=== PATIENT | male | born 1990 | race Hispanic/Latino ===

== ENCOUNTER 2023-11-06 02:41 | Emergency (ER) | payer SELFPAY ==
[2023-11-06] MEDS ORDERED: ONDANSETRON 4 MG/2 ML VIAL ONE (03:15)
[2023-11-06] MEDS ORDERED: ASPIRIN 81 MG CHEWABLE TABLET ONE (03:16)
[2023-11-06] MEDS ORDERED: NA CHLORIDE 0.9% 1,000 ML ONE (03:16)
[2023-11-06] MEDS ORDERED: LORazepam 2 MG/ML VIAL ONE (03:16)
[2023-11-06 03:34] LABS: Absolute Eosinophils 0.1 K/uL (0-0.5); Absolute Lymphocytes (CBC) 2.9 K/uL (0.7-4.9); Absolute Monocytes 0.6 K/uL (0.1-1.3); Absolute Neutrophil 3.5 K/uL (1.8-8.0); Basophils % 0.6 % (0-1.3); Eosinophils % 0.8 % (0-4.4); Hematocrit 42.4 % (39.6-49.0); Hemoglobin 14.8 g/dL (13.6-17.9); Lymphocytes % 40.9 % (15.3-44.8); MCH 31.6 pg (27.0-35.0); MCHC 34.8 g/dL (32.0-36.0); MCV 90.8 fL (80-100); MPV 8.9 fL (7.6-11.3); Monocytes % 8.6 % (3.3-12.3); Neutrophils % 49.1 % (41.7-73.7); Nucleated Red Blood Cells % 0.1 % (0-0); Platelets 225 thou/uL (152-406); RBC Red Blood Cell Count 4.67 M/uL (4.33-5.43); Red Cell Distribution Width 11.9 % (12.1-15.2)
[2023-11-06 03:57] LABS: ALT/SGPT 85 U/L (16-61); AST/SGOT 38 U/L (15-37); Albumin 4.1 g/dL (3.4-5.0); Albumin/Globulin Ratio 1.2 (1.1-1.8); Alkaline Phosphatase 77 U/L (45-117); Anion Gap 9.2 mEq/L (5.0-15.0); BUN Blood Urea Nitrogen 21 mg/dL (7-18); Bicarbonate 27 mEq/L (21-32); Bilirubin Direct 0.2 mg/dL (0-0.2); Bilirubin Indirect, Calculated 0.4 mg/dL (0.2-0.8); Bilirubin Total 0.6 mg/dL (0.2-1.0); Globulin 3.4 g/dL (2.3-3.5); Glomerular Filtration Rate 111 ml/min (=/>90); Glucose Level 121 mg/dL (74-106); Magnesium 1.8 mg/dL (1.6-2.4); Potassium 3.2 mEq/L (3.5-5.1); Protein, Total 7.5 g/dL (6.4-8.2); Sodium Level 135 mEq/L (136-145); Troponin High Sensitivity 4.6 pg/mL (<58.9)
[2023-11-06 04:00] LABS: C-Reactive Protein < 2.90 mg/L (<3.00); NT PRO-BNP < 5 pg/mL (<125)
[2023-11-06 04:03] LABS: PT Prothrombin Time 11.7 SECONDS (9.4-12.5); Protime INR 1.05
--- NOTE | 2023-11-06 06:08 | EDPHYS ---
Physician Documentation [facility] Name: Wili Andrade Age: 32 yrs Sex: Male : 1990 Arrival Date: 11/06/2023 Time: 02:41 Bed 17 Private MD: ED Physician Dillon Elise HPI: 11/05 02:53 This 32 yrs old Male presents to ER via Unassigned with complaints of anxiety. sp4 18:55 32-year-old male presents with complaint of headaches, dizziness, chest pains, numbness sp4 and tingling in the arms and legs, feeling unwell. This has been a problem for several weeks. Patient woke up this morning feeling unwell having headache, discomfort, chest pains, anxiety, numbness and tingling.. Historical: - Allergies: 03:03 No Known Allergies; lg3 - Home Meds: 03:03 None [Active]; lg3 - PMHx: 03:03 None; lg3 - PSHx: 03:03 None; lg3 - Immunization history:: Adult Immunizations up to date. - Infectious Disease History:: Denies. - Social history:: Smoking status: Reported history of juuling and/or vaping. Patient uses alcohol, weekly. - Family history:: not pertinent. ROS: 18:55 Constitutional: Negative for fever, chills, and weight loss, positive for headache, sp4 elevated blood pressure, positive for chest pains, positive for anxiety, positive for numbness and tingling, positive for feeling unwell Eyes: Negative for injury, pain, redness, and discharge, ENT: Negative for injury, pain, and discharge, 18:55 All other systems are negative, Exam: 06:05 Constitutional: This is a well developed, well nourished patient who is awake, alert, sp4 and in no acute distress. Head/Face: Normocephalic, atraumatic. Eyes: Pupils equal round and reactive to light, extra-ocular motions intact. Lids and lashes normal. Conjunctiva and sclera are not injected. Cornea within normal limits. Periorbital areas with no swelling, redness, or edema. ENT: Nares patent. No nasal discharge, no septal abnormalities noted. Tympanic membranes are normal and external auditory canals are clear. Oropharynx with no redness, swelling, or masses, exudates, or evidence of obstruction, uvula midline. Mucous membranes moist. Neck: Trachea midline, no thyromegaly or masses palpated, and no cervical lymphadenopathy. Supple, full range of motion without nuchal rigidity, or vertebral point tenderness. Chest/axilla: Normal chest wall appearance and motion. Nontender with no deformity. No lesions are appreciated. Cardiovascular: Regular rate and rhythm with a normal S1 and S2. No gallops, murmurs, or rubs. Normal PMI, no JVD. No pulse deficits. Respiratory: Lungs have equal breath sounds bilaterally, clear to auscultation and percussion. No rales, rhonchi or wheezes noted. No increased work of breathing, no retractions or nasal flaring. Abdomen/GI: Soft, with normal bowel sounds. No distension or tympany. No guarding or rebound. No evidence of tenderness throughout. Back: No spinal tenderness. No costovertebral tenderness. Skin: Warm, dry with normal turgor. Normal color with no rashes, no lesions, and no evidence of cellulitis. MS/ Extremity: Pulses equal, no cyanosis. Neurovascular intact. Full, normal range of motion. Neuro: Awake and alert, GCS 15, oriented to person, place, time, and situation. Cranial nerves II-XII grossly intact. Motor strength 5/5 in all extremities. Sensory grossly intact. Psych: Awake, alert, with orientation to person, place and time. Behavior, mood, and affect are within normal limits 06:05 ECG was reviewed by the Attending Physician. EKG normal sinus rhythm rate 83, otherwise normal EKG Vital Signs: 02:51 BP 167 / 94; Pulse 86; Resp 17; Temp 98.2; Pulse Ox 100% on R/A; rg5 03:01 BP 167 / 94; Pulse 86; Resp 17 S; Temp 98.2(O); Pulse Ox 100% on R/A; Weight 79.38 kg lg3 (R); Height 5 ft. 11 in. (R); 03:49 BP 135 / 89; Pulse 67; Resp 17; Pulse Ox 98% on R/A; Pain 0/10; rg5 04:19 BP 125 / 78; Pulse 60; Resp 17; Pulse Ox 98% on R/A; Pain 0/10; rg5 05:06 BP 125 / 68; Pulse 64; Resp 18; Pulse Ox 98% on R/A; Pain 0/10; rg5 06:00 BP 121 / 67; Pulse 60; Resp 17; Temp 98; Pulse Ox 99% on R/A; Pain 0/10; rg5 03:01 Body Mass Index 24.41 (79.38 kg, 180.34 cm) lg3 03:49 Pain Scale: Adult rg5 04:19 Pain Scale: Adult rg5 05:06 Pain Scale: Adult rg5 06:00 Pain Scale: Adult rg5 NIH Stroke Scale Scores: 06:00 NIHSS Score: 0 sp4 [place] Coma Score: 02:52 Eye Response: spontaneous(4). Motor Response: obeys commands(6). Verbal Response: rg5 oriented(5). Total: 15. MDM: 02:56 Patient medically screened. sp4 06:01 ED course: EXAM: CT Head/Brain Without Contrast HISTORY: near syncope COMPARISON: None sp4 TECHNIQUE: Head/brain axial images acquired without contrast. Coronal and sagittal reformats created. Exam performed according to departmental dose-optimization program which includes automated exposure control, adjustment of mA and/or kV according to patient size, and/or use of iterative reconstruction technique. FINDINGS: No midline shift, mass effect, intracranial hemorrhage, or hydrocephalus. Brain parenchyma unremarkable. Few small left maxillary sinus mucous retention cysts or polyps. Mastoid air cells clear. No skull fracture or significant skull lesion. IMPRESSION: Unremarkable CT head/brain without contrast.. 18:58 Differential Diagnosis altered mental status, sepsis, flu. Data reviewed: vital signs, sp4 nurses notes, old medical records, lab test result(s), EKG, radiologic studies, CT scan. 18:58 Consideration of Admission/Observation Escalation of care including sp4 admission/observation considered. 11/05 03:05 Order name: Basic Metabolic Panel; Complete Time: 05:56 sp4 11/05 03:05 Order name: CBC with Diff; Complete Time: 05:56 sp4 11/05 03:05 Order name: LFT's; Complete Time: 05:56 sp4 11/05 03:05 Order name: Magnesium; Complete Time: 05:56 sp4 11/05 03:05 Order name: NT PRO-BNP; Complete Time: 05:56 sp4 11/05 03:05 Order name: PT-INR; Complete Time: 05:56 4 11/05 03:05 Order name: Troponin HS; Complete Time: 05:56 4 11/05 03:06 Order name: TSH; Complete Time: 05:56 4 11/05 03:06 Order name: T4 Free; Complete Time: 05:56 4 11/05 03:07 Order name: CRP; Complete Time: 05:56 sp4 11/05 03:05 Order name: XRAY Chest (1 view) 11/05 03:06 Order name: CT Head Brain wo Cont 11/05 03:05 Order name: Cardiac monitoring; Complete Time: 03:13 11/05 03:05 Order name: EKG - Nurse/Tech; Complete Time: 03:13 11/05 03:05 Order name: IV Saline Lock; Complete Time: 03:13 11/05 03:05 Order name: Labs collected and sent; Complete Time: 03:13 11/05 03:05 Order name: O2 Per Protocol; Complete Time: 03:11/05 03:05 Order name: O2 Sat Monitoring; Complete Time: 03:13 EC:05 Rate is 83 beats/min. Rhythm is regular, Normal Sinus Rhythm. QRS [place] is Normal. NM sp4 interval is normal. QRS interval is normal. QT interval is normal. No Q waves. T waves are Normal. No ST changes noted. Clinical impression: No evidence of ischemia. Interpreted by me. Reviewed by me. Administered Medications: 03:27 Drug: Ativan IVP 2 mg IVP once Route: IVP; Site: right antecubital; rg5 03:49 Follow up: Response: No adverse reaction rg5 03:27 Drug: Aspirin PO Chewable Tablet 324 mg PO once; 81 mg tablets x 4 Route: PO; rg5 03:49 Follow up: Response: No adverse reaction rg5 03:28 Drug: NS 0.9% IV 1000 ml IV at 1 bolus Per protocol; 1000 mL bolus Route: IV; Rate: 1 rg5 bolus; Site: right antecubital; 04:45 Follow up: IV Status: Completed infusion; IV Intake: 1000ml rg5 03:28 Drug: Ondansetron IVP 4 mg IVP once; over 2 minutes Route: IVP; Site: right antecubital;rg5 03:48 Follow up: Response: No adverse reaction rg5 Disposition Summary: 11/06/23 06:07 Discharge Ordered Notes: Location: Home sp4 Problem: new sp4 Symptoms: have improved sp4 Condition: Stable sp4 Diagnosis - Anxiety disorder, unspecified sp4 - Acute anxiety attack sp4 Followup: sp4 - With: Ezekiel Vazquez MD - When: 7 - 10 days - Reason: Recheck today's complaints Discharge Instructions: - Discharge Summary Sheet sp4 - Panic Attack, [id number] sp4 Forms: - Patient Portal Instructions sp4 Prescriptions: - Valium 5 mg Oral tablet - take 1 tablet ORAL route once daily As needed PRN anxiety; 12 tablet; Refills: sp4 0, Product Selection Permitted NIH Stroke Scale - NIH Stroke Score Date: 11/06/2023 Time: 06:00 Total Score = 0 10. Dysarthria (speech clarity - read or repeat words) - 0(Normal) 11. Extinction and Inattention (visual/tactile/auditory/spatial/personal) - 0(No abnormality) 1a. Level of Consciousness (LOC) - 0(Alert) 1b. Level of Consciousness (LOC) (Month \T\ Age) - 0(Both) 1c. LOC Commands (Open \T\ Closes Eyes/Channeling Machine Runner) - 0(Both) 2. Best Gaze (Lateral Gaze Paresis) - 0(Normal) 3. Visual Field Loss - 0(No visual loss) 4. Facial Palsy - 0(Normal) 5a. Left Arm: Motor (10-second hold) - 0(No drift) 5b. Right Arm: Motor (10-second hold) - 0(No drift) 6a. Left Leg: Motor (5-second hold - always test supine) - 0(No drift) 6b. Right Leg: Motor (5-second hold - always test supine) - 0(No drift) 7. Limb Ataxia (finger/nose \T\ heel/mendes - test with eyes open) - 0(Absent) 8. Sensory Loss (pinprick arms/legs/face) - 0(Normal) 9. Best Language: Aphasia (description/naming/reading) - 0(No aphasia) Initials: sp4 Signatures: Dispatcher [employer] EDMS Yamilex Arroyo RN RN lg3 Dillon Elise MD MD sp4 Ashley, Sherman, RN RN rg5 Corrections: (The following items were deleted from the chart) 03:06 03:06 BASIC METABOLIC PANEL+C.LAB.BRZ ordered. EDMS EDMS 03:06 03:06 CBC+H.LAB.BRZ ordered. EDMS EDMS 03:06 03:06 HEPATIC FUNCTION+C.LAB.BRZ ordered. EDMS EDMS 03:06 03:06 MAGNESIUM+C.LAB.BRZ ordered. EDMS EDMS 03:06 03:06 PROBNP+C.LAB.BRZ ordered. EDMS EDMS 03:06 03:06 PROTIME (+INR)+COAG.LAB.BRZ ordered. EDMS EDMS 03:06 03:06 Troponin High Sensitivity+C.LAB.BRZ ordered. EDMS EDMS 03:06 03:06 Chest Single View+RAD.RAD.BRZ ordered. EDMS EDMS 03:06 03:06 Head Brain Wo Cont+CT.RAD.BRZ ordered. EDMS EDMS
--- NOTE | 2023-11-06 06:08 | ER ---
Nurse's Notes [facility] Name: Wili Andrade Age: 32 yrs Sex: Male : 1990 Arrival Date: 11/06/2023 Time: 02:41 Bed 17 Private MD: Diagnosis: Anxiety disorder, unspecified;Acute anxiety attack Presentation: 11/05 03:01 Chief complaint: Patient states: woke up at 0207 gasping for air for 2 minutes followed lg3 by vomiting X2, headache, body shakes and sweating. Coronavirus screen: Client denies travel out of the [place] in the last 14 days. At this time, the client does not indicate any symptoms associated with coronavirus-19. Ebola Screen: No symptoms or risks identified at this time. Initial Sepsis Screen: Does the patient meet any 2 criteria? No. Patient's initial sepsis screen is negative. Does the patient have a suspected source of infection? No. Patient's initial sepsis screen is negative. Risk Assessment: Do you want to hurt yourself or someone else? Patient reports no desire to harm self or others. Onset of symptoms was November 06, 2023. 03:01 Method Of Arrival: Wheelchair lg3 03:01 Acuity: DIONTE 3 lg3 Triage Assessment: 03:03 General: Appears in no apparent distress. Behavior is cooperative, anxious, fussy. lg3 Pain: Complains of pain in head. EENT: No deficits noted. No signs and/or symptoms were reported regarding the EENT system. Neuro: No deficits noted. [place] Agitation-Sedation Scale (RASS): 0 - Alert and Calm Level of Consciousness is awake, alert, obeys commands, Oriented to person, place, time, situation. Cardiovascular: No deficits noted. Capillary refill < 3 seconds Clubbing of nail beds is absent JVD is absent Patient's skin is warm and dry. Respiratory: No deficits noted. Airway is patent Respiratory effort is even, unlabored, Respiratory pattern is regular, symmetrical. GI: No deficits noted. Abdomen is round non-distended, Reports vomiting. : No deficits noted. No signs and/or symptoms were reported regarding the genitourinary system. Derm: No deficits noted. Skin is intact, is healthy with good turgor, Skin is dry, Skin is normal. Musculoskeletal: No deficits noted. Circulation, motion, and sensation intact. Range of motion: intact in all extremities. Historical: - Allergies: 03:03 No Known Allergies; lg3 - Home Meds: 03:03 None [Active]; lg3 - PMHx: 03:03 None; lg3 - PSHx: 03:03 None; lg3 - Immunization history:: Adult Immunizations up to date. - Infectious Disease History:: Denies. - Social history:: Smoking status: Reported history of juuling and/or vaping. Patient uses alcohol, weekly. - Family history:: not pertinent. Screenin:52 [facility] ED Fall Risk Assessment (Adult) History of falling in the last 3 months, rg5 including since admission No falls in past 3 months (0 pts) Confusion or Disorientation No (0 pts) Intoxicated or Sedated No (0 pts) Impaired Gait No (0 pts) Mobility Assist Device Used No (0 pt) Altered Elimination No (0 pt) Score/Fall Risk Level 0 - 2 = Low Risk Hourly rounding (assess needs \T\ fall precautionary measures) done. Abuse screen: Denies threats or abuse. Nutritional screening: No deficits noted. Tuberculosis screening: Assessment: 03:03 General: Appears uncomfortable, Behavior is cooperative, appropriate for age, anxious. rg5 Pain: Complains of pain in chest Pain radiates to base of the skull Quality of pain is described as dull, Pain began 2 hours ago. Neuro: Level of Consciousness is awake, alert, obeys commands, Oriented to person, place, time. Cardiovascular: Heart tones S1 S2 Rhythm is sinus rhythm. Respiratory: Reports air hunger. GI: Abdomen is flat, non-distended, Pt is actively vomiting Abd is soft and non tender. : No signs and/or symptoms were reported regarding the genitourinary system. EENT: No deficits noted. Derm: Skin is intact, Skin is dry, Skin is normal. Musculoskeletal: Capillary refill < 3 seconds, Range of motion: intact in all extremities, Reports numbness in left arm. 04:20 Reassessment: Patient and/or family updated on plan of care and expected duration. Pain rg5 level reassessed. Patient is alert, oriented x 3, equal unlabored respirations, skin warm/dry/pink. 05:08 Reassessment: Patient and/or family updated on plan of care and expected duration. Pain rg5 level reassessed. Patient is alert, oriented x 3, equal unlabored respirations, skin warm/dry/pink. Patient states feeling better. Patient states symptoms have improved. 06:10 Reassessment: Patient and/or family updated on plan of care and expected duration. Pain rg5 level reassessed. Patient is alert, oriented x 3, equal unlabored respirations, skin warm/dry/pink. Patient states feeling better. Patient states symptoms have improved. Vital Signs: 02:51 BP 167 / 94; Pulse 86; Resp 17; Temp 98.2; Pulse Ox 100% on R/A; rg5 03:01 BP 167 / 94; Pulse 86; Resp 17 S; Temp 98.2(O); Pulse Ox 100% on R/A; Weight 79.38 kg lg3 (R); Height 5 ft. 11 in. (R); 03:49 BP 135 / 89; Pulse 67; Resp 17; Pulse Ox 98% on R/A; Pain 0/10; rg5 04:19 BP 125 / 78; Pulse 60; Resp 17; Pulse Ox 98% on R/A; Pain 0/10; rg5 05:06 BP 125 / 68; Pulse 64; Resp 18; Pulse Ox 98% on R/A; Pain 0/10; rg5 06:00 BP 121 / 67; Pulse 60; Resp 17; Temp 98; Pulse Ox 99% on R/A; Pain 0/10; rg5 03:01 Body Mass Index 24.41 (79.38 kg, 180.34 cm) lg3 03:49 Pain Scale: Adult rg5 04:19 Pain Scale: Adult rg5 05:06 Pain Scale: Adult rg5 06:00 Pain Scale: Adult rg5 [place] Coma Score: 02:52 Eye Response: spontaneous(4). Motor Response: obeys commands(6). Verbal Response: rg5 oriented(5). Total: 15. NIH Stroke Scale Scores: 06:00 NIHSS Score: 0 sp4 ED Course: 02:51 Patient arrived in ED. rv1 02:52 Dillon Elise MD is Attending Physician. sp4 02:52 No provider procedures requiring assistance completed. rg5 02:52 Patient has correct armband on for positive identification. Bed in low position. Call rg5 light in reach. Side rails up X 1. Adult w/ patient. 03:03 Sherman Ashley, RN is Primary Nurse. rg5 03:03 Triage completed. lg3 03:03 Arm band placed on right wrist. lg3 03:04 Inserted saline lock: 20 gauge in right antecubital area, using aseptic technique. oe Blood collected. Flushed with 10 mL NS. 03:05 Warm blanket given. oe 03:39 Awaiting lab results, Awaiting radiology results. rg5 03:47 CT Head Brain wo Cont In Process Unspecified. EDMS 03:51 XRAY Chest (1 view) In Process Unspecified. EDMS 05:06 Resting quietly. Appears to be sleeping. rg5 06:06 Ezekiel Vazquez MD is Referral Physician. sp4 06:27 IV discontinued, bleeding controlled, No redness/swelling at site. Pressure dressing rg5 applied. 06:28 Provided Education on: post er care. rg5 Administered Medications: 03:27 Drug: Ativan IVP 2 mg IVP once Route: IVP; Site: right antecubital; rg5 03:49 Follow up: Response: No adverse reaction rg5 03:27 Drug: Aspirin PO Chewable Tablet 324 mg PO once; 81 mg tablets x 4 Route: PO; rg5 03:49 Follow up: Response: No adverse reaction rg5 03:28 Drug: NS 0.9% IV 1000 ml IV at 1 bolus Per protocol; 1000 mL bolus Route: IV; Rate: 1 rg5 bolus; Site: right antecubital; 04:45 Follow up: IV Status: Completed infusion; IV Intake: 1000ml rg5 03:28 Drug: Ondansetron IVP 4 mg IVP once; over 2 minutes Route: IVP; Site: right antecubital;rg5 03:48 Follow up: Response: No adverse reaction rg5 Medication: 02:52 VIS not applicable for this client. rg5 Intake: 04:45 IV: 1000ml; Total: 1000ml. rg5 Outcome: 06:07 Discharge ordered by . sp4 06:27 Discharged to home ambulatory, rg5 06:27 Condition: stable 06:27 Discharge instructions given to patient, family, Instructed on discharge instructions, follow up and referral plans. Demonstrated understanding of instructions, follow-up care, medications, Prescriptions given X 1, 06:29 Patient left the ED. rg5 NIH Stroke Scale - NIH Stroke Score Date: 11/06/2023 Time: 06:00 Total Score = 0 10. Dysarthria (speech clarity - read or repeat words) - 0(Normal) 11. Extinction and Inattention (visual/tactile/auditory/spatial/personal) - 0(No abnormality) 1a. Level of Consciousness (LOC) - 0(Alert) 1b. Level of Consciousness (LOC) (Month \T\ Age) - 0(Both) 1c. LOC Commands (Open \T\ Closes Eyes/Straightedge Man) - 0(Both) 2. Best Gaze (Lateral Gaze Paresis) - 0(Normal) 3. Visual Field Loss - 0(No visual loss) 4. Facial Palsy - 0(Normal) 5a. Left Arm: Motor (10-second hold) - 0(No drift) 5b. Right Arm: Motor (10-second hold) - 0(No drift) 6a. Left Leg: Motor (5-second hold - always test supine) - 0(No drift) 6b. Right Leg: Motor (5-second hold - always test supine) - 0(No drift) 7. Limb Ataxia (finger/nose \T\ heel/mendes - test with eyes open) - 0(Absent) 8. Sensory Loss (pinprick arms/legs/face) - 0(Normal) 9. Best Language: Aphasia (description/naming/reading) - 0(No aphasia) Initials: sp4 Signatures: Dispatcher [employer] EDRaji Woodall Lacie, RN RN lg3 Amada Rushing rv1 Dillon Elise MD MD sp4 Sherman Ashley RN RN rg5
[2023-11-06 07:03] VITALS: BP 121/67; TEMP 98; O2SAT 99
--- NOTE | 2023-11-06 20:12 | RAD REPORT ---
EXAM DESCRIPTION: RAD - Chest Single View - 11/06/2023 3:49 am CLINICAL HISTORY: Chest pain COMPARISON: None TECHNIQUE: Chest 1 View AP FINDINGS: Trachea midline. Heart size and pulmonary vessels within normal limits. Lungs clear without evidence of consolidation, mass, or significant pulmonary edema. No significant pleural effusion or pneumothorax. Bones unremarkable. IMPRESSION: Normal chest radiograph. Electronically signed by: Tito Montes MD 11/06/2023 04:57 AM CDT RP Due to temporary technical issues with the PACS/Fluency reporting system, reports are being signed by the in house radiologists without review as a courtesy to insure prompt reporting. The interpreting radiologist is fully responsible for the content of the report.
--- NOTE | 2023-11-06 20:22 | RAD REPORT ---
EXAM DESCRIPTION: CT - Head Brain Wo Cont - 11/06/2023 7:08 am CLINICAL HISTORY: Near syncope COMPARISON: None TECHNIQUE: Head/brain axial images acquired without contrast. Coronal and sagittal reformats created . Exam performed according to departmental dose-optimization program which includes automated exposur e control, adjustment of mA and/or kV according to patient size, and/or use of iterative reconstructi on technique. FINDINGS: No midline shift, mass effect, intracranial hemorrhage, or hydrocephalus. Brain parenchyma unremarkable. Few small left maxillary sinus mucous retention cysts or polyps. Mastoid air cells clear. No skull fracture or significant skull lesion. IMPRESSION: Unremarkable CT head/brain without contrast. Electronically signed by: Tito Montes MD 11/06/2023 05:08 AM CDT RP Due to temporary technical issues with the PACS/Fluency reporting system, reports are being signed by the in house radiologists without review as a courtesy to insure prompt reporting. The interpreting radiologist is fully responsible for the content of the report.
--- NOTE | 2023-11-08 12:54 | EKG ---
Test Date: 2023-11-06 Test Time: 02:55:39 Post Acute Care Registered Nurse: MARCIAL MEASUREMENT RESULTS: Intervals: Rate: 83 UT: 134 QRSD: 86 QT: 364 QTc: 427 [place]: P: 43 UT: 134 QRS: 65 T: 81 INTERPRETIVE STATEMENTS: Normal sinus rhythm Nonspecific ST and T wave abnormality Abnormal ECG No previous ECG available for comparison Electronically Signed On 11-08-23 12:48:54 CDT by Ezekiel Vazquez
== END 2023-11-06 06:29 | disposition home or self-care (01) ==
LOC: ER 02:41
DX: F41.9 Anxiety disorder, unspecified (principal); R51.9 Headache, unspecified; R07.9 Chest pain, unspecified; R42 Dizziness and giddiness; R20.0 Anesthesia of skin
CPT/HCPCS: 36415; 70450; 71045; 80048; 80076; 83735; 83880; 84439; 84443; 84484; 85025; 85610; 86140; 93005; 96361; 96374; 96375; 99284; J2405; J7030

== ENCOUNTER 2023-11-10 13:37 | Emergency (ER) | payer SELFPAY ==
[2023-11-10] MEDS ORDERED: LORazepam 2 MG/ML VIAL ONE (13:49)
[2023-11-10] MEDS ORDERED: ONDANSETRON 4 MG/2 ML VIAL ONE (13:50)
[2023-11-10] MEDS ORDERED: NA CHLORIDE 0.9% 1,000 ML ONE (13:50)
[2023-11-10 14:12] LABS: Protime INR 1.07
[2023-11-10 14:14] LABS: Absolute Lymphocytes (CBC) 3.5 K/uL (0.7-4.9); Absolute Monocytes 0.6 K/uL (0.1-1.3); Absolute Neutrophil 4.9 K/uL (1.8-8.0); Basophils % 0.4 % (0-1.3); Eosinophils % 0.1 % (0-4.4); Hematocrit 48.3 % (39.6-49.0); Hemoglobin 16.9 g/dL (13.6-17.9); Lymphocytes % 38.9 % (15.3-44.8); MCH 31.8 pg (27.0-35.0); MCV 90.9 fL (80-100); MPV 9.2 fL (7.6-11.3); Neutrophils % 53.6 % (41.7-73.7); Nucleated Red Blood Cells % 0.1 % (0-0); Platelets 312 thou/uL (152-406); RBC Red Blood Cell Count 5.32 M/uL (4.33-5.43); Red Cell Distribution Width 12.3 % (12.1-15.2)
[2023-11-10 14:34] LABS: Albumin 4.6 g/dL (3.4-5.0); Albumin/Globulin Ratio 1.1 (1.1-1.8); Anion Gap 11.3 mEq/L (5.0-15.0); Bilirubin Direct 0.3 mg/dL (0-0.2); Bilirubin Total 1.3 mg/dL (0.2-1.0); Globulin 4.2 g/dL (2.3-3.5); Magnesium 2.3 mg/dL (1.6-2.4); Potassium 4.3 mEq/L (3.5-5.1); Protein, Total 8.8 g/dL (6.4-8.2); Troponin High Sensitivity 3.5 pg/mL (<58.9)
--- NOTE | 2023-11-10 15:21 | RAD REPORT ---
EXAM: CT brain without contrast HISTORY: Dizziness COMPARISON: November 06, 1999 TECHNIQUE: Multiple contiguous axial images were obtained and a CT of the brain without contrast. Sagittal and coronal reformats were performed. Automated exposure control, adjustment of the mA and/or kV according to patient size, and/or itera tive reconstruction. Unless otherwise specified, incidental findings do not require dedicated imaging follow-u FINDINGS: An intracranial bleed is not seen Ventricles are normal caliber No extra-axial fluid collection noted No significant hypodensity within the brain No fluid within the visualized sinuses or mastoids noted. IMPRESSION: No acute intracranial abnormality noted. If the patient's symptoms persist MRI of the brain would be recommended.
--- NOTE | 2023-11-10 15:25 | RAD REPORT ---
Procedure: Chest Single View History: Chest pain Comparison: November 06, 2023 The lungs appear clear of acute infiltrate. No significant pleural effusion noted. The heart is normal size. IMPRESSION: No acute abnormality is displayed.
[2023-11-10 15:39] LABS: Specific Gravity 1.007 (1.005-1.030); Sqamous Epithelial None Seen /HPF (None Seen); Urine Bacteria None Seen /HPF (<20); Urine Bilirubin NEGATIVE (Negative); Urine Blood Negative (Negative); Urine Clarity Clear (Clear); Urine Color Colorless (Yellow); Urine Culture Reflex Order NOT NEEDED; Urine Glucose NEGATIVE (Negative); Urine Ketones NEGATIVE (Negative); Urine Micro Reflex YN NO BILL MICROSCOPIC; Urine Nitrite NEGATIVE (Negative); Urine Protein NEGATIVE (Negative); Urine RBC None Seen /HPF (None Seen); Urine Urobilinogen Normal (Normal); Urine WBC <5 /HPF (<5)
[2023-11-10 15:52] LABS: Barbiturates NEGATIVE (NEGATIVE); Benzodiazepines NEGATIVE (NEGATIVE); Cocaine NEGATIVE (NEGATIVE); METHAMPHETAM NEGATIVE (NEGATIVE); Methadone NEGATIVE (NEGATIVE); Opiates NEGATIVE (NEGATIVE); Phencyclidine NEGATIVE (NEGATIVE); THC Cannibis POSITIVE (NEGATIVE)
--- NOTE | 2023-11-10 16:28 | RAD REPORT ---
Chest For Pe Angio History: EXAM: CT CHEST WITH CONTRAST CLINICAL INDICATION: Chest pain TECHNIQUE: CT angiogram chest performed. 100 cc Isovue 370 administered intravenously. Construction p erformed.. 3-D mip reconstruction : Automated exposure control, adjustment of the mA and/or kV according to patient size, and/or iterat elias reconstruction. COMPARISON: No prior exam. FINDINGS: A pulmonary embolus is not seen. No thoracic aortic aneurysm A pleural effusion not noted. No pericardial effusion. Clear lungs IMPRESSION: Negative for a pulmonary embolus
--- NOTE | 2023-11-10 17:44 | EDPHYS ---
Physician Documentation [facility] Name: Wili Andrade Age: 32 yrs Sex: Male : 1990 Arrival Date: 11/10/2023 Time: 13:37 Bed 2 Private MD: ED Physician Will Hanks HPI: 11/09 13:48 This 32 yrs old Male presents to ER via Wheelchair with complaints of Chest cp Pain, Near Syncope. 13:48 The patient or guardian reports chest pain that is located primarily in the anterior cp chest wall, bilaterally. 13:48 Patient is a 32-year-old male who presents to the emergency department with complaints cp of chest pain, lightheadedness and feeling like he is going to pass out. Patient was reportedly in the car when symptoms started suddenly. Patient was seen in this emergency department 2 days ago with similar complaints and diagnosed with anxiety and discharged to follow-up with cardiology. Historical: - Allergies: 13:42 No Known Allergies; iw - Home Meds: 13:42 None [Active]; iw - PMHx: 13:42 None; iw - Immunization history:: Adult Immunizations up to date. - Infectious Disease History:: Denies. - Social history:: Smoking status: Patient denies any tobacco usage or history of. ROS: 13:50 Constitutional: Negative for body aches, chills, fever, cp 13:50 Cardiovascular: Positive for chest pain, cp 13:50 Abdomen/GI: Negative for abdominal pain, diarrhea, constipation, 13:50 Neuro: Positive for dizziness, near syncope, 13:50 Eyes: Negative for injury, pain, redness, and discharge, cp 13:50 ENT: Negative for drainage from ear(s), ear pain, sore throat, difficulty swallowing, cp difficulty handling secretions, 13:50 Respiratory: Negative for cough, wheezing, 13:50 All other systems are negative, Exam: 13:55 ECG was reviewed by the Attending Physician. cp 13:57 Constitutional: The patient appears alert, awake, non-diaphoretic, well developed, well cp nourished, in obvious distress, mildly distressed, 13:57 Head/Face: Normocephalic, atraumatic. cp 13:57 Eyes: Periorbital structures: appear normal, Pupils: equal, round, and reactive to light and accomodation, Extraocular movements: intact throughout, Conjunctiva: normal, no exudate, no injection, Sclera: no appreciated abnormality, Lids and lashes: appear normal, bilaterally, 13:57 ENT: External ear(s): are unremarkable, Nose: is normal, Mouth: Lips: moist, Oral mucosa: pink and intact, moist, Posterior pharynx: is normal, airway is patent, no erythema, no exudate, 13:57 Neck: ROM/movement: is normal, is supple, without pain, no range of motions limitations, 13:57 Chest/axilla: Inspection: normal, 13:57 Cardiovascular: Rate: normal, Rhythm: regular, Edema: is not appreciated, JVD: is not appreciated, 13:57 Respiratory: mild respiratory distress is noted, Respirations: labored breathing, that is mild, Breath sounds: are clear throughout, no decreased breath sounds, no stridor, no wheezing, 13:57 Abdomen/GI: Inspection: abdomen appears normal, Palpation: abdomen is soft and non-tender, in all quadrants, 13:57 Neuro: Orientation: to person, place \T\ time. Mentation: able to follow commands, Motor: moves all fours, no focal deficits, Sensation: tingling, that is mild, of the right hand and left hand, 17:22 ECG was reviewed by the Attending Physician. Vital Signs: 14:36 BP 146 / 98; Pulse 67; Resp 16 S; Temp 98(TE); Pulse Ox 96% on R/A; Pain 0/10; kc6 15:57 BP 126 / 69; Pulse 74; Resp 16; Pulse Ox 98% ; ko1 17:43 BP 126 / 76; Pulse 54; Resp 17 S; Pulse Ox 95% on R/A; kc6 14:36 Pain Scale: Adult kc6 MDM: 13:42 Patient medically screened. 17:42 Data reviewed: vital signs, nurses notes, lab test result(s), EKG, radiologic studies, cp CT scan, plain films, and as a result, I will discharge patient. 17:42 I considered the following discharge prescriptions or medication management in the emergency department Medications were administered in the Emergency Department. See MAR. Independent interpretation of the following test(s) in the Emergency Department EKG: See my EKG interpretation above. Counseling: I had a detailed discussion with the patient and/or guardian regarding the historical points, exam findings, and any diagnostic results supporting the discharge/admit diagnosis, lab results, radiology results, to return to the emergency department if symptoms worsen or persist or if there are any questions or concerns that arise at home. Response to treatment: the patient's symptoms have markedly improved after treatment. 11/09 13:45 Order name: Basic Metabolic Panel; Complete Time: 15:33 11/09 15:34 Interpretation: Normal except: GLUC 110. 11/09 13:45 Order name: CBC with Diff; Complete Time: 15:33 11/09 13:45 Order name: LFT's; Complete Time: 15:33 11/09 15:34 Interpretation: Normal except: ALT 72; BILIT 1.3; BILID 0.3; IBILI, CALC 1.0; TP 8.8; cp GLOB 4.2. 11/09 13:45 Order name: Magnesium; Complete Time: 15:33 11/09 13:45 Order name: NT PRO-BNP; Complete Time: 15:33 11/09 13:45 Order name: PT-INR; Complete Time: 15:33 11/09 13:45 Order name: Troponin HS; Complete Time: 15:33 11/09 13:45 Order name: UDS; Complete Time: 16:19 11/09 16:19 Interpretation: Normal except: THC POSITIVE. 11/09 13:45 Order name: Urinalysis W/Microscopic; Complete Time: 16:19 11/09 16:39 Order name: Troponin HS; Complete Time: 17:36 11/09 17:37 Interpretation: Reviewed. 11/09 13:45 Order name: XRAY Chest (1 view); Complete Time: 15:33 11/09 13:45 Order name: CT Head Brain wo Cont; Complete Time: 15:33 11/09 15:35 Order name: CT Chest For PE Angio; Complete Time: 16:38 11/09 16:39 Interpretation: Report reviewed. 11/09 13:45 Order name: Cardiac monitoring; Complete Time: 13:55 11/09 13:45 Order name: EKG - Nurse/Tech; Complete Time: 13:55 11/09 13:45 Order name: IV Saline Lock; Complete Time: 13:55 11/09 13:45 Order name: Labs collected and sent; Complete Time: 13:55 cp 11/09 13:45 Order name: O2 Per Protocol; Complete Time: 13:55 cp 11/09 13:45 Order name: O2 Sat Monitoring; Complete Time: 13:55 cp 11/09 16:39 Order name: EKG - Nurse/Tech; Complete Time: 17:34 cp EC:55 Rate is 92 beats/min. Rhythm is regular. MI interval is normal. QRS interval is normal. cp QT interval is normal. T waves are Inverted in lead aVR. Interpreted by me. Reviewed by me. 17:22 Rate is 55 beats/min. Rhythm is regular. MI interval is normal. QRS interval is normal. cp QT interval is normal. T waves are Inverted in leads aVL, aVR. Interpreted by me. Reviewed by me. Administered Medications: 13:55 Drug: NS 0.9% IV 1000 ml IV at 1 bolus Per protocol; 1000 mL bolus Route: IV; Rate: 1 ko1 bolus; Site: left antecubital; 14:59 Follow up: Response: No adverse reaction; IV Status: Completed infusion; IV Intake: kc6 1000ml 13:55 Drug: Ondansetron IVP 4 mg IVP once; over 2 minutes Route: IVP; Site: left antecubital; ko1 14:10 Follow up: Response: No adverse reaction; Nausea is decreased ko1 13:55 Drug: Ativan IVP 1 mg IVP once Route: IVP; Site: left antecubital; ko1 14:10 Follow up: Response: No adverse reaction; Anxiety decreased; RASS: Restless (+1) ko1 Disposition Summary: 11/10/23 17:43 Discharge Ordered Notes: Location: Home cp Problem: an ongoing problem cp Symptoms: have improved cp Condition: Stable cp Diagnosis - Anxiety disorder, unspecified cp - Chest pain, unspecified cp - Syncope Near cp Followup: cp - With: Private Physician - When: 2 - 3 days - Reason: Recheck today's complaints Discharge Instructions: - Discharge Summary Sheet cp - Nonspecific Chest Pain, Adult cp - Near-Syncope cp - Aspirin and Your Heart cp - Form - Return To Work cp - Managing Anxiety, Adult cp Forms: - Medication Reconciliation Form cp - Antibiotic Education cp - Prescription Opioid Use cp - Patient Portal Instructions cp - Leadership Thank You Letter cp - Work release form kc6 Signatures: Dispatcher [employer] Katie Alcantar, RN RN Will Melo PA PA cp Campbell, Kaitlyn RN RN kc6 Jennifer London RN RN ko1
--- NOTE | 2023-11-10 17:44 | ER ---
Nurse's Notes [facility] Name: Wili Andrade Age: 32 yrs Sex: Male : 1990 Arrival Date: 11/10/2023 Time: 13:37 Bed 2 Private MD: Diagnosis: Anxiety disorder, unspecified;Chest pain, unspecified;Syncope Near Presentation: 11/09 13:41 Chief complaint: Friend and/or Co-Worker states: pt has been c/o SOB, tingling in arms, iw chest pain, he has been SOB all day, was seen here recently and told it was anxiety. Coronavirus screen: At this time, the client does not indicate any symptoms associated with coronavirus-19. Ebola Screen: No symptoms or risks identified at this time. Risk Assessment: Do you want to hurt yourself or someone else? Patient reports no desire to harm self or others. Onset of symptoms was November 10, 2023. 13:41 Method Of Arrival: Wheelchair iw 13:41 Acuity: DIONTE 3 iw 17:54 Initial Sepsis Screen: Does the patient meet any 2 criteria? HR > 90 bpm. Does the kc6 patient have a suspected source of infection? No. Patient's initial sepsis screen is negative. Historical: - Allergies: 13:42 No Known Allergies; iw - Home Meds: 13:42 None [Active]; iw - PMHx: 13:42 None; iw - Immunization history:: Adult Immunizations up to date. - Infectious Disease History:: Denies. - Social history:: Smoking status: Patient denies any tobacco usage or history of. Screenin:40 [facility] ED Fall Risk Assessment (Adult) History of falling in the last 3 months, kc6 including since admission No falls in past 3 months (0 pts) Confusion or Disorientation No (0 pts) Intoxicated or Sedated No (0 pts) Impaired Gait No (0 pts) Mobility Assist Device Used No (0 pt) Altered Elimination No (0 pt) Score/Fall Risk Level 0 - 2 = Low Risk. Abuse screen: Denies threats or abuse. Denies injuries from another. Nutritional screening: No deficits noted. Tuberculosis screening: No symptoms or risk factors identified. Assessment: 13:40 General: Appears distressed, uncomfortable, well groomed, well developed, Behavior is kc6 anxious, restless. Pain: Complains of pain in chest Pain radiates to right arm and left arm Pain began suddenly, Is continuous. Neuro: Level of Consciousness is awake, alert, obeys commands, Oriented to person, place, time, situation, Appropriate for age. Cardiovascular: Reports chest pain, nausea, vomiting, Heart tones S1 S2 present Capillary refill < 3 seconds Rhythm is regular. Respiratory: Reports shortness of breath Airway is patent Trachea midline Respiratory effort is even, unlabored, Respiratory pattern is regular, symmetrical. GI: Reports nausea, vomiting, Patient currently denies abdominal pain, diarrhea. : No signs and/or symptoms were reported regarding the genitourinary system. EENT: No signs and/or symptoms were reported regarding the EENT system. Derm: No signs and/or symptoms reported regarding the dermatologic system. Skin is intact, is healthy with good turgor, Skin is pink, warm \T\ dry. Musculoskeletal: No signs and/or symptoms reported regarding the musculoskeletal system. Circulation, motion, and sensation intact. Capillary refill < 3 seconds, Range of motion: intact in all extremities. 14:37 Reassessment: Patient appears in no apparent distress at this time. No changes from kc6 previously documented assessment. Patient and/or family updated on plan of care and expected duration. Pain level reassessed. Patient is alert, oriented x 3, equal unlabored respirations, skin warm/dry/pink. 15:37 Reassessment: Patient appears in no apparent distress at this time. No changes from kc6 previously documented assessment. Patient and/or family updated on plan of care and expected duration. Pain level reassessed. Patient is alert, oriented x 3, equal unlabored respirations, skin warm/dry/pink. Patient states feeling better. Patient states symptoms have improved. 16:37 Reassessment: Patient appears in no apparent distress at this time. No changes from kc6 previously documented assessment. Patient and/or family updated on plan of care and expected duration. Pain level reassessed. Patient is alert, oriented x 3, equal unlabored respirations, skin warm/dry/pink. 17:43 Reassessment: Patient appears in no apparent distress at this time. No changes from kc6 previously documented assessment. Patient and/or family updated on plan of care and expected duration. Pain level reassessed. Patient is alert, oriented x 3, equal unlabored respirations, skin warm/dry/pink. Vital Signs: 14:36 BP 146 / 98; Pulse 67; Resp 16 S; Temp 98(TE); Pulse Ox 96% on R/A; Pain 0/10; kc6 15:57 BP 126 / 69; Pulse 74; Resp 16; Pulse Ox 98% ; ko1 17:43 BP 126 / 76; Pulse 54; Resp 17 S; Pulse Ox 95% on R/A; kc6 14:36 Pain Scale: Adult kc6 ED Course: 13:39 Patient arrived in ED. im 13:39 Will Prather PA is PHCP. cp 13:39 Will Hanks MD is Attending Physician. cp 13:40 Patient has correct armband on for positive identification. Placed in gown. Bed in low kc6 position. Call light in reach. Side rails up X 1. Adult w/ patient. scene shifter on. Pulse ox on. NIBP on. Door closed. Noise minimized. Lights dimmed. Warm blanket given. Pillow given. 13:40 EKG done, by ED staff, reviewed by Will Hanks MD. Inserted saline lock: 20 gauge in kc6 left antecubital area, using aseptic technique. Blood collected. Flushed with 10 mL NS. Patient maintains SpO2 saturation greater than 95% on room air. 13:42 Triage completed. iw 13:42 Arm band placed on. iw 13:49 Brittney Puckett, RN is Primary Nurse. kc6 14:26 CT Head Brain wo Cont In Process Unspecified. EDMS 14:30 XRAY Chest (1 view) In Process Unspecified. EDMS 15:49 CT Chest For PE Angio In Process Unspecified. EDMS 17:07 Troponin HS Sent. ko1 17:54 No provider procedures requiring assistance completed. IV discontinued, intact, kc6 bleeding controlled, No redness/swelling at site. Pressure dressing applied. Administered Medications: 13:55 Drug: NS 0.9% IV 1000 ml IV at 1 bolus Per protocol; 1000 mL bolus Route: IV; Rate: 1 ko1 bolus; Site: left antecubital; 14:59 Follow up: Response: No adverse reaction; IV Status: Completed infusion; IV Intake: kc6 1000ml 13:55 Drug: Ondansetron IVP 4 mg IVP once; over 2 minutes Route: IVP; Site: left antecubital; ko1 14:10 Follow up: Response: No adverse reaction; Nausea is decreased ko1 13:55 Drug: Ativan IVP 1 mg IVP once Route: IVP; Site: left antecubital; ko1 14:10 Follow up: Response: No adverse reaction; Anxiety decreased; RASS: Restless (+1) ko1 Medication: 17:54 VIS not applicable for this client. kc6 Intake: 14:59 IV: 1000ml; Total: 1000ml. kc6 Outcome: 17:43 Discharge ordered by MD. cp 17:54 Discharged to home ambulatory, with significant other, kc6 17:54 Condition: improved 17:54 Discharge instructions given to patient, significant other, Instructed on discharge instructions, follow up and referral plans. no drinking with medication, no driving heavy equipment, Demonstrated understanding of instructions, follow-up care, 17:54 Patient left the ED. kc6 Signatures: Dispatcher [employer] Katie Alcantar RN RN iw Page, Corey, PA PA cp Campbell, Kaitlyn, RN RN kc6 Jennifer London RN RN ko1 Britney Putnam
[2023-11-10 18:21] VITALS: TEMP 98
[2023-11-10 18:23] VITALS: BP 126/76; O2SAT 95
--- NOTE | 2023-11-11 12:17 | EKG ---
Test Date: 2023-11-10 Test Time: 17:18:36 Registered Nurse First Assistant: AVERY MEASUREMENT RESULTS: Intervals: Rate: 55 WV: 130 QRSD: 92 QT: 398 QTc: 380 [place]: P: 48 WV: 130 QRS: 79 T: 74 INTERPRETIVE STATEMENTS: Sinus bradycardia Otherwise normal ECG Compared to ECG 11/10/2023 13:46:46 Sinus tachycardia no longer present ST (T wave) deviation no longer present Electronically Signed On 11-11-23 12:16:04 CDT by Russ Anaya
--- NOTE | 2023-11-11 12:18 | EKG ---
Test Date: 2023-11-10 Test Time: 13:46:46 [place] [facility] Hand: MANUEL MEASUREMENT RESULTS: Intervals: Rate: 110 NE: 128 QRSD: 78 QT: 316 QTc: 427 [place]: P: 74 NE: 128 QRS: 83 T: -8 INTERPRETIVE STATEMENTS: Sinus tachycardia Nonspecific ST and T wave abnormality Abnormal ECG Compared to ECG 11/06/2023 02:55:39 Sinus rhythm no longer present ST (T wave) deviation still present Electronically Signed On 11-11-23 12:16:44 CDT by Russ Anaya
== END 2023-11-10 17:54 | disposition home or self-care (01) ==
LOC: ER 13:37
DX: R07.9 Chest pain, unspecified (principal); R55 Syncope and collapse; F41.9 Anxiety disorder, unspecified
CPT/HCPCS: 36415; 70450; 71045; 71275; 80048; 80076; 80307; 81001; 83735; 83880; 84484; 85025; 85610; 93005; 96361; 96374; 96375; 99285; J2405; J7030; Q9967

== ENCOUNTER 2023-12-15 10:11 | Emergency (ER) | payer SELFPAY ==
[2023-12-15] MEDS ORDERED: NA CHLORIDE 0.9% 1,000 ML ONE (11:04)
[2023-12-15] MEDS ORDERED: ASPIRIN 81 MG CHEWABLE TABLET ONE (11:04)
[2023-12-15 11:36] LABS: Absolute Lymphocytes (CBC) 1.9 K/uL (0.7-4.9); Absolute Monocytes 0.5 K/uL (0.1-1.3); Absolute Neutrophil 3.7 K/uL (1.8-8.0); Basophils % 0.4 % (0-1.3); Eosinophils % 0.8 % (0-4.4); Hemoglobin 16.2 g/dL (13.6-17.9); Lymphocytes % 31.1 % (15.3-44.8); MCH 31.7 pg (27.0-35.0); MCHC 34.5 g/dL (32.0-36.0); MCV 91.8 fL (80-100); MPV 9.3 fL (7.6-11.3); Monocytes % 8.1 % (3.3-12.3); Neutrophils % 59.6 % (41.7-73.7); Nucleated Red Blood Cells % 0.1 % (0-0); Platelets 288 thou/uL (152-406); RBC Red Blood Cell Count 5.12 M/uL (4.33-5.43); Red Cell Distribution Width 11.9 % (12.1-15.2)
[2023-12-15 11:40] LABS: PT Prothrombin Time 13.1 SECONDS (9.4-12.5); Protime INR 1.18
[2023-12-15 11:54] LABS: Barbiturates NEGATIVE (NEGATIVE); Benzodiazepines POSITIVE (NEGATIVE); Cocaine NEGATIVE (NEGATIVE); METHAMPHETAM NEGATIVE (NEGATIVE); Methadone NEGATIVE (NEGATIVE); Opiates NEGATIVE (NEGATIVE); Phencyclidine NEGATIVE (NEGATIVE); THC Cannibis POSITIVE (NEGATIVE)
[2023-12-15 11:59] LABS: ALT/SGPT 163 U/L (16-61); AST/SGOT 62 U/L (15-37); Albumin 4.6 g/dL (3.4-5.0); Albumin/Globulin Ratio 1.2 (1.1-1.8); Alkaline Phosphatase 86 U/L (45-117); Anion Gap 8.5 mEq/L (5.0-15.0); BUN Blood Urea Nitrogen 12 mg/dL (7-18); Bicarbonate 28 mEq/L (21-32); Bilirubin Direct 0.2 mg/dL (0-0.2); Bilirubin Indirect, Calculated 0.7 mg/dL (0.2-0.8); Bilirubin Total 0.9 mg/dL (0.2-1.0); Globulin 3.7 g/dL (2.3-3.5); Glomerular Filtration Rate 119 ml/min (=/>90); Glucose Level 110 mg/dL (74-106); Lipase 33 U/L (13-75); Magnesium 2.3 mg/dL (1.6-2.4); Potassium 4.5 mEq/L (3.5-5.1); Protein, Total 8.3 g/dL (6.4-8.2); Sodium Level 136 mEq/L (136-145); Troponin High Sensitivity 3.7 pg/mL (<58.9)
[2023-12-15 12:01] LABS: NT PRO-BNP < 5 pg/mL (<125)
--- NOTE | 2023-12-15 12:02 | RAD REPORT ---
EXAMINATION: ONE VIEW CHEST XR CLINICAL INDICATION: Male, 33 years old.,CHEST PAIN TECHNIQUE: Frontal chest projection is submitted. Examination is limited by patient positioning and t echnique. COMPARISON: 11/10/2023 FINDINGS: The lungs are well inflated and clear. No pneumothorax or sizable effusion. The heart is normal in s ize. IMPRESSION: No acute intrathoracic abnormalities.
[2023-12-15 12:13] LABS: Specific Gravity 1.023 (1.005-1.030); Sqamous Epithelial None Seen /HPF (None Seen); Urine Bacteria None Seen /HPF (<20); Urine Bilirubin NEGATIVE (Negative); Urine Blood Negative (Negative); Urine Clarity Clear (Clear); Urine Color Light-Yellow (Yellow); Urine Culture Reflex Order NOT NEEDED; Urine Glucose NEGATIVE (Negative); Urine Ketones NEGATIVE (Negative); Urine Microscopic Reflex YN ORDER UMIC; Urine Mucus Slight /HPF (None Seen); Urine Nitrite NEGATIVE (Negative); Urine Protein NEGATIVE (Negative); Urine RBC <5 /HPF (None Seen); Urine Urobilinogen Normal (Normal); Urine WBC <5 /HPF (<5)
--- NOTE | 2023-12-15 14:28 | ER ---
Nurse's Notes [facility] Name: Wili Andrade Age: 33 yrs Sex: Male : 1990 Arrival Date: 12/15/2023 Time: 10:11 Bed 19 Private MD: Diagnosis: Essential (primary) hypertension;Anxiety disorder, unspecified Presentation: 12/14 10:28 Chief complaint: Patient states: Chest pain to the left sided of his chest and pain to cm10 his left arm onset 1-2 weeks ago. Pt states that he is also having arm and neck pain. Pt states that he has been checking his pressure at home and his blood pressure has been in the 140s systolic. Coronavirus screen: Client denies travel out of the [place] in the last 14 days. Ebola Screen: Patient denies travel to an Ebola-affected area in the 21 days before illness onset. No symptoms or risks identified at this time. Initial Sepsis Screen: Does the patient meet any 2 criteria? No. Patient's initial sepsis screen is negative. Does the patient have a suspected source of infection? No. Patient's initial sepsis screen is negative. Risk Assessment: Do you want to hurt yourself or someone else? Patient reports no desire to harm self or others. Onset of symptoms was December 15, 2023. 10:28 Method Of Arrival: Ambulatory cm10 10:28 Acuity: DIONTE 2 cm10 Triage Assessment: 10:30 General: Appears in no apparent distress. uncomfortable, Behavior is calm, cooperative. cm10 Neuro: No deficits noted. Level of Consciousness is awake, alert, obeys commands, Oriented to person, place, time, situation, Appropriate for age. Respiratory: No deficits noted. Airway is patent Respiratory effort is even, unlabored, Respiratory pattern is regular, symmetrical. Historical: - Allergies: 10:29 No Known Allergies; cm10 - Home Meds: 10:29 None [Active]; cm10 - PMHx: 10:29 None; cm10 - PSHx: 10:29 None; cm10 - Immunization history:: Adult Immunizations up to date. - Infectious Disease History:: Denies. - Social history:: Smoking status: Reported history of juuling and/or vaping. - Family history:: not pertinent. Screenin:27 [facility] ED Fall Risk Assessment (Adult) History of falling in the last 3 months, db including since admission No falls in past 3 months (0 pts) Confusion or Disorientation No (0 pts) Intoxicated or Sedated No (0 pts) Impaired Gait No (0 pts) Mobility Assist Device Used No (0 pt) Altered Elimination No (0 pt) Score/Fall Risk Level 0 - 2 = Low Risk Oriented to surroundings, Maintained a safe environment. Abuse screen: Denies threats or abuse. Denies injuries from another. Nutritional screening: No deficits noted. Tuberculosis screening: No symptoms or risk factors identified. Assessment: 11:31 Reassessment: Patient appears in no apparent distress at this time. Patient and/or db family updated on plan of care and expected duration. Pain level reassessed. Patient is alert, oriented x 3, equal unlabored respirations, skin warm/dry/pink. General: Appears in no apparent distress. comfortable, Behavior is calm, cooperative, appropriate for age. Pain: Complains of pain in chest Pain radiates to head, left arm and neck Pain began gradually, 1 day ago. 2-3 days ago. Cardiovascular: Reports chest pain. 12:27 Reassessment: Patient appears in no apparent distress at this time. Patient and/or db family updated on plan of care and expected duration. Pain level reassessed. Patient is alert, oriented x 3, equal unlabored respirations, skin warm/dry/pink. General: Appears in no apparent distress. comfortable, Behavior is calm, cooperative. Neuro: Level of Consciousness is awake, alert, obeys commands, Oriented to person, place, time, situation. Respiratory: Airway is patent Respiratory effort is even, unlabored, Respiratory pattern is regular, symmetrical. 13:30 Reassessment: Patient appears in no apparent distress at this time. Patient and/or db family updated on plan of care and expected duration. Pain level reassessed. Patient is alert, oriented x 3, equal unlabored respirations, skin warm/dry/pink. 14:30 Reassessment: Patient appears in no apparent distress at this time. Patient and/or db family updated on plan of care and expected duration. Pain level reassessed. Patient is alert, oriented x 3, equal unlabored respirations, skin warm/dry/pink. Patient states feeling better. Patient states symptoms have improved. Vital Signs: 10:28 BP 141 / 97; Pulse 76; Resp 16; Temp 97.4(IR); Pulse Ox 100% ; Weight 79.38 kg; Height cm10 5 ft. 10 in. ; Pain 3/10; 11:00 BP 137 / 94; Pulse 66; Resp 16; Pulse Ox 97% on R/A; db 12:00 BP 142 / 95; Pulse 58; Resp 18; Pulse Ox 97% on R/A; db 12:30 BP 152 / 95; Pulse 58; Resp 16; Pulse Ox 100% on R/A; db 13:00 BP 141 / 87; Pulse 64; Resp 14; Pulse Ox 98% on R/A; db 13:30 BP 149 / 86; Pulse 68; Resp 18; Pulse Ox 97% on R/A; db 14:30 BP 140 / 84; Pulse 67; Resp 20; Pulse Ox 97% on R/A; db 10:28 Body Mass Index 25.11 (79.38 kg, 177.8 cm) cm10 10:28 Pain Scale: Adult cm10 ED Course: 10:11 Patient arrived in ED. mr 10:14 Will Hanks MD is Attending Physician. nicole 10:28 Arm band placed on right wrist. Patient placed in waiting room. EKG completed in cm10 triage. Results shown to MD. 10:29 Triage completed. cm10 10:30 EKG done, by ED staff, reviewed by Will Hanks MD. cm10 11:15 Criss Ni, RN is Primary Nurse. db 11:27 Initial lab(s) drawn, by vt, sent to lab. Inserted saline lock: 20 gauge in left db antecubital area, using aseptic technique. Blood collected. Flushed with 10 mL NS. Patient maintains SpO2 saturation greater than 95% on room air. 11:28 XRAY Chest (1 view) In Process Unspecified. EDMS 12:28 Patient has correct armband on for positive identification. Bed in low position. Call db light in reach. Side rails up X 1. Client placed on continuous cardiac and pulse oximetry monitoring. NIBP monitoring applied. industrial pipefitter journeyman on. Pulse ox on. NIBP on. Warm blanket given. Pillow given. 14:26 Job Diego DO is Referral Physician. [facility] 14:26 Ezekiel Vazquez MD is Referral Physician. [facility] 14:53 Provided Education on: DISCHARGE AND FOLLOWUP. db 14:53 No provider procedures requiring assistance completed. IV discontinued, intact, db bleeding controlled, No redness/swelling at site. Administered Medications: 11:18 Drug: Aspirin PO Chewable Tablet 162 mg PO once Route: PO; db 14:07 Follow up: Response: No adverse reaction db 11:27 Drug: NS 0.9% IV 1000 ml IV at 1000 ml once; to be given as a bolus over 60 minutes db Route: IV; Rate: 1000 ml; Site: right antecubital; 14:07 Follow up: Response: No adverse reaction; IV Status: Completed infusion; IV Intake: db 1000ml 14:45 Drug: ToPROL XL PO 25 mg PO once Route: PO; db 14:55 Follow up: Response: No adverse reaction db Medication: 12:27 VIS not applicable for this client. db Intake: 14:07 IV: 1000ml; Total: 1000ml. db Outcome: 14:28 Discharge ordered by . nicole 14:53 Discharged to home ambulatory, with family, 14:53 Condition: stable 14:53 Discharge instructions given to patient, Instructed on discharge instructions, follow up and referral plans. Prescriptions given X 2, 14:56 Patient left the ED. db Signatures: Dispatcher [employer] EDMS Will Hanks MD MD cha Rivera, Mary, Reg Reg mr Criss Ni, RN RN Gardenia Babin RN RN cm10 Corrections: (The following items were deleted from the chart) 10:29 10:29 PSHx: Unable to Obtain; cm10 cm10
--- NOTE | 2023-12-15 14:28 | EDPHYS ---
Physician Documentation [facility] Name: Wili Andrade Age: 33 yrs Sex: Male : 1990 Arrival Date: 12/15/2023 Time: 10:11 Bed 19 Private MD: ED Physician Will Hanks HPI: 12/14 14:21 This 33 yrs old Male presents to ER via Ambulatory with complaints of Chest nicole Pain, Arm Pain, High Blood Pressure, Headache. 14:21 The patient or guardian reports chest pain that is located primarily in the anterior nicole chest wall, left. The pain does not radiate. Associated signs and symptoms: The patient has no apparent associated signs or symptoms. The chest pain is described as sharp. Duration: The patient or guardian reports multiple episodes, with no pattern. Modifying factors: The symptoms are alleviated by nothing. the symptoms are aggravated by nothing. Severity of pain: At its worst the pain was mild in the emergency department the pain is unchanged. The patient has experienced similar episodes in the past, several times. Historical: - Allergies: 10: No Known Allergies; cm10 - Home Meds: 10: None [Active]; cm10 - PMHx: : None; cm10 - PSHx: 10: None; cm10 - Immunization history:: Adult Immunizations up to date. - Infectious Disease History:: Denies. - Social history:: Smoking status: Reported history of juuling and/or vaping. - Family history:: not pertinent. ROS: 14:21 Constitutional: Negative for fever, chills, and weight loss, Eyes: Negative for injury, nicole pain, redness, and discharge, ENT: Negative for injury, pain, and discharge, Neck: Negative for injury, pain, and swelling, Respiratory: Negative for shortness of breath, cough, wheezing, and pleuritic chest pain, Abdomen/GI: Negative for abdominal pain, nausea, vomiting, diarrhea, and constipation, Back: Negative for injury and pain, : Negative for injury, bleeding, discharge, and swelling, MS/Extremity: Negative for injury and deformity, Skin: Negative for injury, rash, and discoloration, Neuro: Negative for headache, weakness, numbness, tingling, and seizure, Psych: Negative for depression, anxiety, suicide ideation, homicidal ideation, and hallucinations, Allergy/Immunology: Negative for hives, rash, and allergies, Endocrine: Negative for neck swelling, polydipsia, polyuria, polyphagia, and marked weight changes, Hematologic/Lymphatic: Negative for swollen nodes, abnormal bleeding, and unusual bruising, 14:21 Cardiovascular: Positive for chest pain, Exam: 14:21 Constitutional: This is a well developed, well nourished patient who is awake, alert, nicole and in no acute distress. Head/Face: Normocephalic, atraumatic. Eyes: Pupils equal round and reactive to light, extra-ocular motions intact. Lids and lashes normal. Conjunctiva and sclera are non-icteric and not injected. Cornea within normal limits. Periorbital areas with no swelling, redness, or edema. ENT: Nares patent. No nasal discharge, no septal abnormalities noted. Tympanic membranes are normal and external auditory canals are clear. Oropharynx with no redness, swelling, or masses, exudates, or evidence of obstruction, uvula midline. Mucous membranes moist. Neck: Trachea midline, no thyromegaly or masses palpated, and no cervical lymphadenopathy. Supple, full range of motion without nuchal rigidity, or vertebral point tenderness. No Meningismus. Chest/axilla: Normal chest wall appearance and motion. Nontender with no deformity. No lesions are appreciated. Cardiovascular: Regular rate and rhythm with a normal S1 and S2. No gallops, murmurs, or rubs. Normal PMI, no JVD. No pulse deficits. Respiratory: Lungs have equal breath sounds bilaterally, clear to auscultation and percussion. No rales, rhonchi or wheezes noted. No increased work of breathing, no retractions or nasal flaring. Abdomen/GI: Soft, non-tender, with normal bowel sounds. No distension or tympany. No guarding or rebound. No evidence of tenderness throughout. Back: No spinal tenderness. No costovertebral tenderness. Full range of motion. Male : Normal genitalia with no discharge or lesions. Skin: Warm, dry with normal turgor. Normal color with no rashes, no lesions, and no evidence of cellulitis. MS/ Extremity: Pulses equal, no cyanosis. Neurovascular intact. Full, normal range of motion. Neuro: Awake and alert, GCS 15, oriented to person, place, time, and situation. Cranial nerves II-XII grossly intact. Motor strength 5/5 in all extremities. Sensory grossly intact. Cerebellar exam normal. Normal gait. Psych: Awake, alert, with orientation to person, place and time. Behavior, mood, and affect are within normal limits. 14:21 ECG was reviewed by the Attending Physician. Vital Signs: 10:28 BP 141 / 97; Pulse 76; Resp 16; Temp 97.4(IR); Pulse Ox 100% ; Weight 79.38 kg; Height cm10 5 ft. 10 in. ; Pain 3/10; 11:00 BP 137 / 94; Pulse 66; Resp 16; Pulse Ox 97% on R/A; db 12:00 BP 142 / 95; Pulse 58; Resp 18; Pulse Ox 97% on R/A; db 12:30 BP 152 / 95; Pulse 58; Resp 16; Pulse Ox 100% on R/A; db 13:00 BP 141 / 87; Pulse 64; Resp 14; Pulse Ox 98% on R/A; db 13:30 BP 149 / 86; Pulse 68; Resp 18; Pulse Ox 97% on R/A; db 14:30 BP 140 / 84; Pulse 67; Resp 20; Pulse Ox 97% on R/A; db 10:28 Body Mass Index 25.11 (79.38 kg, 177.8 cm) cm10 10:28 Pain Scale: Adult cm10 MDM: 10:14 Medical Screening Exam initiated nicole 14:24 Differential diagnosis: abnormal EKG, acute myocardial infarction, acute pericarditis, nicole anxiety, coronary artery disease chest wall pain, cholecystitis, Cholelithiasis costochondritis, esophagitis, hiatal hernia, myocarditis, pancreatitis, peptic ulcer disease, pericarditis, pleurisy, pulmonary embolus, stable angina, thoracic aortic disection, unstable angina. HEART Score: ECG: Normal (0), Age: < or = 45 years (0), Risk Factors: 1 or 2 risk factors (1), [Hypertension] [+ Family HX] Troponin: < or = 1 x Normal Limit (0). YESI Risk Score: TOTAL SCORE = 0. Data reviewed: vital signs, nurses notes, lab test result(s), EKG, radiologic studies, plain films. Consideration of Admission/Observation Patient was admitted/placed on observation. Escalation of care including admission/observation considered. I considered the following discharge prescriptions or medication management in the emergency department Medications were administered in the Emergency Department. See MAR. Independent interpretation of the following test(s) in the Emergency Department EKG: See my EKG interpretation above. Test considered but Not performed: CT: NO CT CHEST. Care significantly affected by the following chronic conditions: NONE. 12/14 10:19 Order name: Basic Metabolic Panel; Complete Time: 14:16 nicole 12/14 10:19 Order name: CBC with Diff; Complete Time: 14:16 [facility] 12/14 10:19 Order name: LFT's; Complete Time: 14:16 12/14 10:19 Order name: Magnesium; Complete Time: 14:16 [facility] 12/14 10:19 Order name: NT PRO-BNP; Complete Time: 14:16 12/14 10:19 Order name: PT-INR; Complete Time: 14:16 12/14 10:19 Order name: Troponin HS; Complete Time: 14:16 [facility] 12/14 10:19 Order name: Lipase; Complete Time: 14:16 [facility] 12/14 10:19 Order name: Urinalysis w/ reflexes; Complete Time: 14:16 12/14 10:19 Order name: UDS; Complete Time: 14:16 [facility] 12/14 10:19 Order name: XRAY Chest (1 view); Complete Time: 14:16 12/14 10:19 Order name: EKG; Complete Time: 10:19 12/14 10:19 Order name: Cardiac monitoring; Complete Time: 11:21 nicole 12/14 10:19 Order name: EKG - Nurse/Tech; Complete Time: 11:21 [facility] 12/14 10:19 Order name: IV Saline Lock; Complete Time: 11:30 [facility] 12/14 10:19 Order name: Labs collected and sent; Complete Time: 11:30 [facility] 12/14 10:19 Order name: O2 Per Protocol; Complete Time: 11:21 [facility] 12/14 10:19 Order name: O2 Sat Monitoring; Complete Time: 11:21 [facility] EC:21 Rate is 67 beats/min. Rhythm is regular. QRS [place] is Normal. SC interval is normal. QT nicole interval is normal. No Q waves. T waves are Normal. No ST changes noted. Clinical impression: Normal ECG and No evidence of ischemia. Interpreted by me. Reviewed by me. Administered Medications: 11:18 Drug: Aspirin PO Chewable Tablet 162 mg PO once Route: PO; db 14:07 Follow up: Response: No adverse reaction db 11:27 Drug: NS 0.9% IV 1000 ml IV at 1000 ml once; to be given as a bolus over 60 minutes db Route: IV; Rate: 1000 ml; Site: right antecubital; 14:07 Follow up: Response: No adverse reaction; IV Status: Completed infusion; IV Intake: db 1000ml 14:45 Drug: ToPROL XL PO 25 mg PO once Route: PO; db 14:55 Follow up: Response: No adverse reaction db Disposition Summary: 12/15/23 14:28 Discharge Ordered Notes: Location: Home nicole Problem: new nicole Symptoms: have improved nicole Condition: Stable nicole Diagnosis - Essential (primary) hypertension nicole - Anxiety disorder, unspecified nicole Followup: nicole - With: Private Physician - When: 2 - 3 days - Reason: Recheck today's complaints, Continuance of care, Re-evaluation by your physician Followup: nicole - With: Job Diego DO - When: 2 - 3 days - Reason: Recheck today's complaints, Re-evaluation by your physician Discharge Instructions: - Discharge Summary Sheet nicole - Hypertension, Adult nicole - Hypertension, Adult, [id number] nicole - How to Take Your Blood Pressure, [id number] nicole - Aspirin and Your Heart nicole - Managing Your Hypertension nicole - Supporting Someone With Anxiety nicole - Managing Anxiety, Adult nicole Forms: - Medication Reconciliation Form nicole - Antibiotic Education nicole - Prescription Opioid Use nicole - Patient Portal Instructions [facility] - Leadership Thank You Letter [facility] Prescriptions: - Hydroxyzine HCl 25 mg Oral tablet - take 1 tablet ORAL route every 6 hours As needed PRN; 30 tablet; Refills: 0, nicole Product Selection Permitted - Toprol XL 25 mg Oral Tablet - take 1 tablet ORAL route once daily; 20 tablet; Refills: 0, Product Selection nicole Permitted Signatures: Dispatcher [employer] EDWill Arriaga MD MD cha Benton, Danielle RN RN Gardenia Babin RN RN cm10 Corrections: (The following items were deleted from the chart) 10:19 10:19 BASIC METABOLIC PANEL+C.LAB.BRZ ordered. EDMS EDMS 10:19 10:19 CBC+H.LAB.BRZ ordered. EDMS EDMS 10:19 10:19 HEPATIC FUNCTION+C.LAB.BRZ ordered. EDMS EDMS 10:19 10:19 MAGNESIUM+C.LAB.BRZ ordered. EDMS EDMS 10:19 10:19 PROBNP+C.LAB.BRZ ordered. EDMS EDMS 10:19 10:19 PROTIME (+INR)+COAG.LAB.BRZ ordered. EDMS EDMS 10:19 10:19 Troponin High Sensitivity+C.LAB.BRZ ordered. EDMS EDMS 10:19 10:19 LIPASE+C.LAB.BRZ ordered. EDMS EDMS 10:19 10:19 Urinalysis+U.LAB.BRZ ordered. EDMS EDMS 10:19 10:19 URINE DRUG SCREEN+UC.LAB.BRZ ordered. EDMS EDMS 10:29 10:29 PSHx: Unable to Obtain; cm10 cm10
[2023-12-15] MEDS ORDERED: METOPROLOL XL 50 MG TAB PO ONE (14:44)
[2023-12-15 19:26] VITALS: TEMP 97.4
[2023-12-15 19:32] VITALS: O2SAT 97
[2023-12-15 19:33] VITALS: BP 140/84
--- NOTE | 2023-12-16 12:18 | EKG ---
Test Date: 2023-12-15 Test Time: 10:26:53 Archives Director: MORGAN MEASUREMENT RESULTS: Intervals: Rate: 67 TN: 134 QRSD: 78 QT: 348 QTc: 367 [place]: P: 67 TN: 134 QRS: 83 T: 82 INTERPRETIVE STATEMENTS: Normal sinus rhythm Normal ECG Compared to ECG 11/10/2023 17:18:36 Sinus bradycardia no longer present Electronically Signed On 12-16-23 12:14:54 CDT by Russ Anaya
== END 2023-12-15 14:56 | disposition home or self-care (01) ==
LOC: ER 10:11
DX: I10 Essential (primary) hypertension (principal); F41.9 Anxiety disorder, unspecified
CPT/HCPCS: 36415; 71045; 80048; 80076; 80307; 81001; 83690; 83735; 83880; 84484; 85025; 85610; 93005; J7030

== ENCOUNTER 2023-12-22 20:15 | Emergency (ER) | payer SELFPAY ==
--- OUTSIDE RECORDS SUMMARY | 2023-12-22 20:18 | XMS REPORT | Continuity of Care Document ---
Author Name Unknown Address [address] [place] [address] [address] [place], [place] [id number] [place] [address] [employer] Address [address] [place] [address] [address] [place] [address] Care Team Providers Care Pega Developer Name Role Phone Unavailable Unavailable Unavailable Encounters Start Date/Time End Date/Time Encounter Type Admission Type Attending Clinicians Care Facility Care Department Encounter ID Source 2023-12-16 08:47:38 2023-12-16 08:47:38 Outpatient [facility] [id number] Naun Olivera
--- NOTE | 2023-12-22 21:34 | RAD REPORT ---
EXAMINATION: ONE VIEW CHEST XR CLINICAL INDICATION: CHEST PAIN TECHNIQUE: Frontal chest projection is submitted. Examination is limited by patient positioning and t echnique. COMPARISON: 12/15/2023 FINDINGS: The lungs are well inflated and clear. The heart is normal in size. No displaced fractures identified . IMPRESSION: No acute intrathoracic abnormalities.
[2023-12-22 21:43] LABS: Absolute Basophils 0.1 K/uL (0-0.5); Absolute Eosinophils 0.1 K/uL (0-0.5); Absolute Lymphocytes (CBC) 2.6 K/uL (0.7-4.9); Absolute Monocytes 0.6 K/uL (0.1-1.3); Absolute Neutrophil 3.8 K/uL (1.8-8.0); Basophils % 0.8 % (0-1.3); Eosinophils % 0.8 % (0-4.4); Hematocrit 42.2 % (39.6-49.0); Hemoglobin 14.4 g/dL (13.6-17.9); Lymphocytes % 36.3 % (15.3-44.8); MCH 31.6 pg (27.0-35.0); MCHC 34.2 g/dL (32.0-36.0); MCV 92.4 fL (80-100); MPV 9.3 fL (7.6-11.3); Monocytes % 8.7 % (3.3-12.3); Neutrophils % 53.4 % (41.7-73.7); Platelets 272 thou/uL (152-406); RBC Red Blood Cell Count 4.57 M/uL (4.33-5.43); Red Cell Distribution Width 12.1 % (12.1-15.2)
[2023-12-22] MEDS ORDERED: ASPIRIN 81 MG CHEWABLE TABLET ONE (21:43)
[2023-12-22 21:45] LABS: PT Prothrombin Time 12.1 SECONDS (9.4-12.5); Protime INR 1.08
[2023-12-22] MEDS ORDERED: KETOROLAC 30 MG/ML INJ ONE (21:54)
[2023-12-22 22:00] LABS: Anion Gap 5.7 mEq/L (5.0-15.0); Potassium 3.7 mEq/L (3.5-5.1)
--- NOTE | 2023-12-22 22:11 | ER ---
Nurse's Notes [facility] Name: Wili Andrade Age: 33 yrs Sex: Male : 1990 Arrival Date: 12/22/2023 Time: 20:15 Bed 11 Private MD: Diagnosis: Chest pain, unspecified Presentation: 12/21 20:44 Chief complaint: Patient states: Chest pain to the left side of his chest that has been cm10 intermittent over the last few days. Pt describes the pain as sharp. Coronavirus screen: Client denies travel out of the [place] in the last 14 days. Ebola Screen: Patient denies travel to an Ebola-affected area in the 21 days before illness onset. Initial Sepsis Screen: Does the patient meet any 2 criteria? No. Patient's initial sepsis screen is negative. Does the patient have a suspected source of infection? No. Patient's initial sepsis screen is negative. Risk Assessment: Do you want to hurt yourself or someone else? Patient reports no desire to harm self or others. Onset of symptoms was December 22, 2023. 20:44 Method Of Arrival: Ambulatory cm10 20:44 Acuity: DIONTE 2 cm10 Triage Assessment: 20:47 General: Appears in no apparent distress. uncomfortable, Behavior is calm, cooperative. cm10 Pain: Complains of pain in chest Pain radiates to left arm Pain currently is 5 out of 10 on a pain scale. Quality of pain is described as sharp, Is intermittent. Neuro: No deficits noted. Level of Consciousness is awake, alert, obeys commands, Oriented to person, place, time, situation, Appropriate for age. Respiratory: No deficits noted. Airway is patent Respiratory effort is even, unlabored, Respiratory pattern is regular, symmetrical. Historical: - Allergies: 20:46 No Known Allergies; cm10 - Home Meds: 20:46 metoprolol tartrate 25 mg Oral tablet [Active]; cm10 21:34 Diazepam Oral for anxiety [Active]; bo1 - PMHx: 20:46 Hypertensive disorder; cm10 - Immunization history:: Adult Immunizations up to date. - Infectious Disease History:: Denies. - Social history:: Stopped smoking, cocaine use, ETOH use for 4 weeks, Smoking status: Patient denies any tobacco usage or history of. Screenin:33 [facility] ED Fall Risk Assessment (Adult) History of falling in the last 3 months, lg3 including since admission No falls in past 3 months (0 pts) Confusion or Disorientation No (0 pts) Intoxicated or Sedated No (0 pts) Impaired Gait No (0 pts) Mobility Assist Device Used No (0 pt) Altered Elimination No (0 pt) Score/Fall Risk Level 0 - 2 = Low Risk Oriented to surroundings, Maintained a safe environment, Educated pt \T\ family on fall prevention, incl call for assistance when getting out of bed, Assessed \T\ reinforced patient's understanding of fall precautions. Abuse screen: Denies threats or abuse. Denies injuries from another. Nutritional screening: No deficits noted. Tuberculosis screening: No symptoms or risk factors identified. Assessment: 22:33 General: Appears in no apparent distress. comfortable, Behavior is calm, cooperative. lg3 Pain: Complains of pain in anterior aspect of left upper chest Pain does not radiate. Pain began 2-3 days ago. Neuro: No deficits noted. Aguilar Agitation-Sedation Scale (RASS): 0 - Alert and Calm Level of Consciousness is awake, alert, obeys commands, Oriented to person, place, time, situation. Cardiovascular: Reports chest pain, Heart tones S1 S2 present Capillary refill < 3 seconds Clubbing of nail beds is absent JVD is absent Patient's skin is warm and dry. Chest pain quality is pressure, sharp. Respiratory: No deficits noted. Airway is patent Respiratory effort is even, unlabored, Respiratory pattern is regular, symmetrical. GI: No deficits noted. No signs and/or symptoms were reported involving the gastrointestinal system. : No deficits noted. No signs and/or symptoms were reported regarding the genitourinary system. EENT: No deficits noted. No signs and/or symptoms were reported regarding the EENT system. Derm: No deficits noted. No signs and/or symptoms reported regarding the dermatologic system. Skin is intact, is healthy with good turgor, Skin is dry, Skin is normal, Skin temperature is warm. Musculoskeletal: No deficits noted. No signs and/or symptoms reported regarding the musculoskeletal system. Circulation, motion, and sensation intact. Range of motion: intact in all extremities. Vital Signs: 20:44 BP 142 / 87; Pulse 61; Resp 18; Temp 97.8(TE); Pulse Ox 99% on R/A; Weight 72.57 kg; cm10 Height 5 ft. 10 in. ; Pain 5/10; 22:33 BP 137 / 84; Pulse 68; Resp 16 S; Temp 97.4(O); Pulse Ox 99% on R/A; Pain 4/10; lg3 20:44 Body Mass Index 22.96 (72.57 kg, 177.8 cm) cm10 20:44 Pain Scale: Adult cm10 22:33 Pain Scale: Adult lg3 ED Course: 20:24 Patient arrived in ED. cm10 20:45 Triage completed. cm10 20:47 Arm band placed on right wrist. EKG completed in triage. Results shown to MD. cm10 20:47 EKG done, by ED staff, reviewed by Misael Antonio MD. cm10 20:48 Misael Antonio MD is Attending Physician. bo1 21:23 XRAY Chest (1 view) In Process Unspecified. EDMS 21:28 Basic Metabolic Panel Sent. vk 21:28 CBC with Diff Sent. vk 21:28 PT-INR Sent. vk 21:28 Troponin HS Sent. vk 21:29 Inserted saline lock: 20 gauge in right antecubital area, using aseptic technique. vk Blood collected. Flushed with 10 mL NS. 21:29 Initial lab(s) drawn, by me, sent to lab. vk 22:24 IV discontinued, intact, bleeding controlled, No redness/swelling at site. Pressure vk dressing applied. 22:33 Patient has correct armband on for positive identification. Bed in low position. Call lg3 light in reach. Side rails up X 1. Client placed on continuous cardiac and pulse oximetry monitoring. NIBP monitoring applied. laboratory monitor on. Door closed. Noise minimized. Warm blanket given. Pillow given. Family accompanied patient. 22:33 No provider procedures requiring assistance completed. Patient maintains SpO2 lg3 saturation greater than 95% on room air. Administered Medications: 21:50 Drug: Aspirin PO Chewable Tablet 324 mg PO once; 81 mg tablets x 4 Route: PO; lg3 22:36 Follow up: Response: No adverse reaction lg3 22:15 Drug: Ketorolac IVP 30 mg IVP once Route: IVP; Site: right antecubital; lg3 22:36 Follow up: Response: No adverse reaction; Marked relief of symptoms lg3 Medication: 22:33 VIS not applicable for this client. lg3 Outcome: 22:11 Discharge ordered by . bo1 22:33 Discharged to home ambulatory, with significant other, lg3 22:33 Condition: stable 22:33 Discharge instructions given to patient, Instructed on discharge instructions, follow up and referral plans. medication usage, Demonstrated understanding of instructions, follow-up care, medications, Prescriptions given X 1, 22:36 Patient left the ED. lg3 Signatures: Dispatcher [employer] EDMS Yamilex Arroyo RN RN lg3 Gardenia Tucker RN RN cm10 Amena Dominguez Benjamin, MD MD bo1
--- NOTE | 2023-12-22 22:11 | EDPHYS ---
Physician Documentation [facility] Name: Wili Andrade Age: 33 yrs Sex: Male : 1990 Arrival Date: 12/22/2023 Time: 20:15 Bed 11 Private MD: ED Physician Misael Antonio HPI: 12/21 21:32 This 33 yrs old Male presents to ER via Ambulatory with complaints of Chest bo1 Pain. 21:32 The patient or guardian reports chest pain that is located primarily in the anterior bo1 chest wall, left, anterior aspect of left upper chest. The pain radiates to the left arm, "numbness". Associated signs and symptoms: Pertinent positives: Anxiety, "sharp CP". The chest pain is described as sharp. Duration: The patient or guardian reports multiple episodes, with no pattern, "It all the time" for the past two weeks. Modifying factors: the symptoms are aggravated by breathing, deep breath, movement, of the left arm etc. Severity of pain: At its worst the pain was moderate. The patient has experienced similar episodes in the past. The patient has been recently seen by a physician: in the ER. Pt was referred to a camp manager, not seen as yet. 22:13 Pt felt a "pop" at the left sternal border today. bo1 Historical: - Allergies: 20:46 No Known Allergies; cm10 - Home Meds: 20:46 metoprolol tartrate 25 mg Oral tablet [Active]; cm10 21:34 Diazepam Oral for anxiety [Active]; bo1 - PMHx: 20:46 Hypertensive disorder; cm10 - Immunization history:: Adult Immunizations up to date. - Infectious Disease History:: Denies. - Social history:: Stopped smoking, cocaine use, ETOH use for 4 weeks, Smoking status: Patient denies any tobacco usage or history of. ROS: 22:07 Constitutional: Negative for fever, chills, and weight loss bo1 22:07 Constitutional: Negative for fever, 22:07 Neck: Negative for pain with movement, pain at rest, 22:07 Cardiovascular: Positive for chest pain, "sharp", 22:07 Respiratory: Negative for cough, shortness of breath, 22:07 Skin: Negative for lesions, rash, 22:07 All other systems are negative, Exam: 20:50 ECG was reviewed by the Attending Physician. bo1 22:08 Constitutional: This is a well developed, well nourished patient who is awake, alert, bo1 and in no acute distress. 22:08 Constitutional: The patient appears alert, awake, comfortable, well nourished, anxious, 22:08 Head/face: Exam is negative for acute changes, obvious evidence of injury or deformity, 22:08 Neck: External neck: is normal, no acute changes, 22:08 Chest/axilla: Inspection: normal, Palpation: tenderness, that is mild, of the anterior aspect of left upper chest, that totally reproduces the patient's complaints, 22:08 Cardiovascular: Rate: bradycardic, Rhythm: regular, Pulses: no pulse deficits are appreciated, Heart sounds: normal, 22:08 Respiratory: the patient does not display signs of respiratory distress, Respirations: normal, no acute changes, Breath sounds: are clear throughout, 22:08 Abdomen/GI: Inspection: abdomen appears normal, 22:08 Musculoskeletal/extremity: Extremities: all appear grossly normal, with no appreciated pain with palpation, 22:08 Skin: Appearance: normal except for affected area, no rash present. Vital Signs: 20:44 BP 142 / 87; Pulse 61; Resp 18; Temp 97.8(TE); Pulse Ox 99% on R/A; Weight 72.57 kg; cm10 Height 5 ft. 10 in. ; Pain 5/10; 22:33 BP 137 / 84; Pulse 68; Resp 16 S; Temp 97.4(O); Pulse Ox 99% on R/A; Pain 4/10; lg3 20:44 Body Mass Index 22.96 (72.57 kg, 177.8 cm) cm10 20:44 Pain Scale: Adult cm10 22:33 Pain Scale: Adult lg3 MDM: 20:48 Medical Screening Exam initiated bo1 22:09 Differential diagnosis: chest wall pain, costochondritis. Data reviewed: vital signs, bo1 old medical records, lab test result(s), cardiac enzymes, CBC, electrolytes, urinalysis, EKG, radiologic studies, plain films. 22:25 ED course: Discussed findings with pt and spouse, agreed upon the next course of action bo1 and trial of toradol. F/U with cardio MD for the CP episodes. 12/21 20:49 Order name: Basic Metabolic Panel; Complete Time: 22:06 bo12/21 20:49 Order name: CBC with Diff; Complete Time: 22:06 bo12/21 20:49 Order name: PT-INR; Complete Time: 22:06 bo12/21 20:49 Order name: Troponin HS; Complete Time: 22:06 bo12/21 20:49 Order name: XRAY Chest (1 view); Complete Time: 22:06 bo12/21 20:49 Order name: EKG; Complete Time: 20:49 12/21 20:49 Order name: Cardiac monitoring; Complete Time: 21: bo12/21 20:49 Order name: EKG - Nurse/Tech; Complete Time: : bo12/21 20:49 Order name: IV Saline Lock; Complete Time: : bo12/21 20:49 Order name: Labs collected and sent; Complete Time: : bo12/21 20:49 Order name: O2 Per Protocol; Complete Time: :12/21 20:49 Order name: O2 Sat Monitoring; Complete Time: : bo EC:50 Rate is 58 beats/min. Rhythm is regular. QRS Bethany is Normal. AL interval is normal. QRS bo1 interval is normal. QT interval is normal. No Q waves. T waves are Normal. No ST changes noted. Clinical impression: Sinus bradycardia. Interpreted by me. Reviewed by me. Administered Medications: 21:50 Drug: Aspirin PO Chewable Tablet 324 mg PO once; 81 mg tablets x 4 Route: PO; lg3 22:36 Follow up: Response: No adverse reaction lg3 22:15 Drug: Ketorolac IVP 30 mg IVP once Route: IVP; Site: right antecubital; lg3 22:36 Follow up: Response: No adverse reaction; Marked relief of symptoms lg3 Disposition Summary: 12/22/23 22:11 Discharge Ordered Notes: Location: Home bo1 Problem: chronic bo1 Symptoms: are unchanged bo1 Condition: Stable bo1 Diagnosis - Chest pain, unspecified bo1 Followup: bo1 - With: Private Physician - When: Upon discharge from the Emergency Department - Reason: Recheck today's complaints, Continuance of care Discharge Instructions: - Discharge Summary Sheet bo1 - Chest Wall Pain, [id number] bo1 - Nonspecific Chest Pain, Adult, [id number] bo1 Forms: - Medication Reconciliation Form bo1 - Antibiotic Education bo1 - Prescription Opioid Use bo1 - Patient Portal Instructions bo1 - Leadership Thank You Letter bo1 Prescriptions: - ketorolac 10 mg Oral tablet - take 1 tablet ORAL route every 6 hours for 5 days as needed for pain; 20 bo1 tablet; Refills: 0, Product Selection Permitted Signatures: Dispatcher [employer] EDYamilex Rao RN RN lg3 Gardenia Tucker RN RN cm10 Misael Antonio MD MD bo1
[2023-12-22 23:56] VITALS: O2SAT 99
[2023-12-23 00:02] VITALS: BP 137/84; TEMP 97.4
--- NOTE | 2023-12-23 11:07 | EKG ---
Test Date: 2023-12-22 Test Time: 20:42:52 Operating Systems Programmer: MORGAN MEASUREMENT RESULTS: Intervals: Rate: 58 HI: 128 QRSD: 72 QT: 386 QTc: 378 [place]: P: 36 HI: 128 QRS: 81 T: 82 INTERPRETIVE STATEMENTS: Sinus bradycardia ST abnormality, possible digitalis effect Abnormal ECG Compared to ECG 12/15/2023 10:26:53 ST (T wave) deviation now present Sinus rhythm no longer present Electronically Signed On 12-23-23 11:06:46 CDT by Russ Anaya
== END 2023-12-22 22:36 | disposition home or self-care (01) ==
LOC: ER 20:15
DX: R07.9 Chest pain, unspecified (principal); I10 Essential (primary) hypertension
CPT/HCPCS: 36415; 71045; 80048; 84484; 85025; 85610; 93005; 96374; 99285

== ENCOUNTER 2024-03-29 11:26 | Emergency (ER) | payer SELFPAY ==
--- NOTE | 2024-03-29 12:51 | RAD REPORT ---
EXAM: XR Knee Right 3 View HISTORY: [facility] MAIN knee;Pain Bed: COMPARISON: None TECHNIQUE: 3 views of the right knee were obtained. FINDINGS: There is no evidence of acute fracture or dislocation. No significant degenerative changes are seen. Mildly radiodense linear opacity in the suprapatellar zone on the oblique view, could relate to an extracorporeal fold. Mild suprapatellar joint effusion. IMPRESSION: No evidence of acute osseous abnormality. Mild suprapatellar effusion.
--- NOTE | 2024-03-29 16:54 | RAD REPORT ---
EXAMINATION: Knee Right Wo Cont REASON FOR EXAM: 33 years old Male [facility] MAIN N knee injury, persistent, negative imaging COMPARISON: Right knee radiographs of the same day TECHNIQUE: Routine noncontrast multiplanar, multisequence MRI of the right knee was obtained. FINDINGS: CRUCIATES AND OTHER LIGAMENTS: Anterior cruciate ligament is intact. Posterior cruciate ligament is i ntact. Marked swelling with increased T2 signal deep and superficial to the femoral attachment of the MCL, with loss of fiber continuity at least partially near the attachment, see series 3 image 13 and series 7 image 12 among others. Edema extends anteriorly towards the medial patellofemoral ligament attachment as well, although this does not appear completely torn. Lateral collateral ligame nt is complex is intact. MENISCI: Medial meniscus is intact. Lateral meniscus is intact. CARTILAGE AND JOINT SPACE: No joint effusion is present in the right knee. JOINT SPACE: The patellar and trochlear groove cartilage and the tibiofemoral articular cartilage is preserved. OSSEOUS STRUCTURES: There is no acute fracture or marrow edema pattern in the left knee. EXTENSOR MECHANISM: Patellar and quadriceps tendons are intact. OTHER FINDINGS: Increased T2 signal within the margin of the peroneus longus muscle, with some overly ing subcutaneous swelling, see series 3 image 29 among others. A superficial partial tear is suggested here. Popliteus tendon appears intact. The remainder of the surrounding soft tissue structu res are unremarkable. IMPRESSION: Grade 3 MCL injury, with at least a partial tear along the femoral attachment. Sprain versus partial tear of the medial patellofemoral ligament at the femoral side. Sprain versus partial tear laterally along the peroneus longus muscle origin. Anterior and posterior cruciate ligaments, and menisci, appear intact.
--- NOTE | 2024-03-29 17:05 | EDPHYS ---
Physician Documentation [facility] Name: Wili Andrade Age: 33 yrs Sex: Male : 1990 Arrival Date: 03/29/2024 Time: 11:26 Bed IW1 Private MD: ED Physician Anders Spicer HPI: 03/29 14:07 This 33 yrs old Male presents to ER via Ambulatory with complaints of Right, ec2 Knee Pain. 14:07 Patient arrives today for evaluation of right knee pain after a fall several weeks ago..ec2 Historical: - Allergies: 11:58 No Known Allergies; cm10 - Home Meds: 11:58 metoprolol tartrate 25 mg Oral tablet [Active]; cm10 - PMHx: 11:58 Hypertensive disorder; cm10 - Immunization history:: Adult Immunizations up to date. - Infectious Disease History:: Denies. - Social history:: Smoking status: Reported history of juuling and/or vaping. ROS: 14:07 Constitutional: as per hpi ec2 Exam: 14:07 Constitutional: GEN: NAD Head: atraumatic Eyes: EOMI Ears: External ears are ec2 normal. CV: regular rate LUNGS: no respiratory distress ABD: non-distended SKIN: no evidence of rashes MSK: no evidence of trauma, right knee with good range of motion, trace effusion appreciated, no erythema, no warmth Vital Signs: 11:57 BP 145 / 96; Pulse 56; Resp 15; Temp 97(TE); Pulse Ox 100% on R/A; Weight 78.02 kg; cm10 Height 5 ft. 1 in. ; Pain 3/10; 11:57 Body Mass Index 32.50 (78.02 kg, 154.94 cm) cm10 11:57 Pain Scale: Adult cm10 MDM: 11:58 Medical Screening Exam initiated ec2 14:07 Data reviewed: vital signs, nurses notes. ED course: Patient arrives today for right ec2 knee pain. Examination yields MSK findings as above. Will obtain MRI. Suspect possible ligamentous injury.. 17:04 ED course: MRI imaging as per radiology report. Will discharge home have patient ec2 follow-up with surgery. Return precautions given.. 03/29 11:58 Order name: Knee Right 3 View XRAY; Complete Time: 15:13 ec2 03/29 12:19 Order name: Knee Right Wo Cont; Complete Time: 17:03 EDMS Administered Medications: No medications were administered Disposition Summary: 03/29/24 17:04 Discharge Ordered Notes: Location: Home ec2 Condition: Stable ec2 Diagnosis - Sprain of other specified parts of right knee ec2 Followup: ec2 - With: Julius Chow MD - When: - Reason: Recheck today's complaints Discharge Instructions: - Discharge Summary Sheet ec2 - Knee Sprain, Adult, [id number] ec2 Forms: - Medication Reconciliation Form ec2 - Antibiotic Education ec2 - Prescription Opioid Use ec2 - Patient Portal Instructions ec2 - Leadership Thank You Letter ec2 Prescriptions: - methocarbamol 500 mg Oral tablet - take 1 tablet ORAL route 4 times per day; 30 tablet; Refills: 0, Product ec2 Selection Permitted Signatures: Dispatcher [employer] Gardenia Jennings RN RN cm10 Anders Spicer MD MD ec2
--- NOTE | 2024-03-29 17:05 | ER ---
Nurse's Notes [facility] Name: Wili Andrade Age: 33 yrs Sex: Male : 1990 Arrival Date: 03/29/2024 Time: 11:26 Bed IW1 Private MD: Diagnosis: Sprain of other specified parts of right knee Presentation: 03/29 11:57 Chief complaint: Patient states: Right knee pain s/p fall 2 weeks ago. Pt states that cm10 the pain has not improved. Coronavirus screen: Client denies travel out of the [place] in the last 14 days. Ebola Screen: Patient denies travel to an Ebola-affected area in the 21 days before illness onset. Initial Sepsis Screen: Does the patient meet any 2 criteria? No. Patient's initial sepsis screen is negative. Does the patient have a suspected source of infection? No. Patient's initial sepsis screen is negative. Risk Assessment: Do you want to hurt yourself or someone else? Patient reports no desire to harm self or others. Onset of symptoms was March 29, 2024. 11:57 Method Of Arrival: Ambulatory cm10 11:57 Acuity: DIONTE 4 cm10 Triage Assessment: 11:58 General: Appears uncomfortable, Behavior is calm, cooperative. Pain: Complains of pain cm10 in right knee Pain currently is 3 out of 10 on a pain scale. Neuro: No deficits noted. Level of Consciousness is awake, alert, obeys commands, Oriented to person, place, time, situation, Appropriate for age. Respiratory: No deficits noted. Airway is patent Respiratory effort is even, unlabored, Respiratory pattern is regular, symmetrical. Musculoskeletal: Reports pain in right knee. Historical: - Allergies: 11:58 No Known Allergies; cm10 - Home Meds: 11:58 metoprolol tartrate 25 mg Oral tablet [Active]; cm10 - PMHx: 11:58 Hypertensive disorder; cm10 - Immunization history:: Adult Immunizations up to date. - Infectious Disease History:: Denies. - Social history:: Smoking status: Reported history of juuling and/or vaping. Screenin:08 [facility] ED Fall Risk Assessment (Adult) History of falling in the last 3 months, iw including since admission No falls in past 3 months (0 pts) Confusion or Disorientation No (0 pts) Intoxicated or Sedated No (0 pts) Impaired Gait No (0 pts) Mobility Assist Device Used No (0 pt) Altered Elimination No (0 pt) Score/Fall Risk Level 0 - 2 = Low Risk Oriented to surroundings, Maintained a safe environment. Abuse screen: Denies threats or abuse. Denies injuries from another. Nutritional screening: No deficits noted. Nutritional screening: No deficits noted. Tuberculosis screening: No symptoms or risk factors identified. Assessment: 16:07 General: Appears in no apparent distress. Behavior is calm, cooperative. Pain: iw Complains of pain in right leg and right knee. Neuro: Level of Consciousness is awake, alert, obeys commands, Oriented to person, place, time, situation. Cardiovascular: Patient's skin is warm and dry. Vital Signs: 11:57 BP 145 / 96; Pulse 56; Resp 15; Temp 97(TE); Pulse Ox 100% on R/A; Weight 78.02 kg; cm10 Height 5 ft. 1 in. ; Pain 3/10; 11:57 Body Mass Index 32.50 (78.02 kg, 154.94 cm) cm10 11:57 Pain Scale: Adult cm10 ED Course: 11:28 Patient arrived in ED. mr 11:35 Anders Spicer MD is Attending Physician. ec2 11:58 Triage completed. cm10 11:59 Arm band placed on right wrist. Patient placed in waiting room. cm10 12:47 Knee Right 3 View XRAY In Process Unspecified. EDMS 15:57 Knee Right Wo Cont In Process Unspecified. EDMS 16:07 Katie Segura RN is Primary Nurse. iw 17:04 Julius Chow MD is Referral Physician. ec2 18:05 No provider procedures requiring assistance completed. Patient did not have IV access iw during this emergency room visit. Administered Medications: No medications were administered Medication: 16:15 VIS not applicable for this client. iw Outcome: 17:04 Discharge ordered by . ec2 18:05 Discharged to home ambulatory, with family, iw 18:05 Condition: good 18:05 Discharge instructions given to family, Instructed on discharge instructions, follow up and referral plans. 18:06 Patient left the ED. iw Signatures: Dispatcher [employer] EDTN Magaly Alex, Reg Reg mr Katie Segura RN RN iw Garrett, Gardenia, RN RN cm10 Spicer, Anders, MD MD ec2
[2024-03-29 18:41] VITALS: BP 145/96; TEMP 97; O2SAT 100
== END 2024-03-29 18:06 | disposition home or self-care (01) ==
LOC: ER 11:26
DX: S83.8X1A Sprain of other specified parts of right knee, initial encounter (principal)

== ENCOUNTER 2024-07-02 09:57 | Emergency (ER) | payer SELFPAY ==
[2024-07-02] MEDS ORDERED: ONDANSETRON 4 MG/2 ML VIAL ONE (10:20)
[2024-07-02] MEDS ORDERED: MAGNES/ALUMIN/SIMET 30ML UCUP ONE (10:20)
[2024-07-02] MEDS ORDERED: NA CHLORIDE 0.9% 1,000 ML ONE (10:21)
[2024-07-02] MEDS ORDERED: LIDOCAINE VISCOUS 2% 10ML ORAL SOLN ONE (10:21)
[2024-07-02] MEDS ORDERED: MORPHINE 4 MG/ML SYR ONE (10:21)
[2024-07-02] MEDS ORDERED: FAMOTIDINE 20 MG/2 ML VIAL IV ONE (10:21)
[2024-07-02 10:26] LABS: Absolute Basophils 0.1 K/uL (0-0.5); Absolute Lymphocytes (CBC) 2.6 K/uL (0.7-4.9); Absolute Monocytes 0.7 K/uL (0.1-1.3); Absolute Neutrophil 3.7 K/uL (1.8-8.0); Basophils % 0.7 % (0-1.3); Eosinophils % 0.7 % (0-4.4); Hemoglobin 15.9 g/dL (13.6-17.9); Lymphocytes % 36.6 % (15.3-44.8); MCH 31.9 pg (27.0-35.0); MCHC 35.4 g/dL (32.0-36.0); MCV 90.2 fL (80-100); MPV 8.7 fL (7.6-11.3); Monocytes % 10.3 % (3.3-12.3); Neutrophils % 51.7 % (41.7-73.7); Nucleated Red Blood Cells % 0.2 % (0-0); Platelets 251 thou/uL (152-406); RBC Red Blood Cell Count 4.98 M/uL (4.33-5.43); Red Cell Distribution Width 12.2 % (12.1-15.2)
[2024-07-02 10:47] LABS: Albumin 3.9 g/dL (3.4-5.0); Albumin/Globulin Ratio 1.1 (1.1-1.8); Anion Gap 9.5 mEq/L (5.0-15.0); Bilirubin Total 0.4 mg/dL (0.2-1.0); Globulin 3.5 g/dL (2.3-3.5); Protein, Total 7.4 g/dL (6.4-8.2)
[2024-07-02 10:50] LABS: Potassium 3.5 mEq/L (3.5-5.1)
--- NOTE | 2024-07-02 11:14 | RAD REPORT ---
EXAMINATION: CT ABDOMEN AND PELVIS WITH CONTRAST CLINICAL INDICATION: ABD PAIN TECHNIQUE: CT abdomen and pelvis was performed, after the administration of IV [facility] Axial, sagittal and coronal reconstructions were obtained. One or more of the following dose reduction techniques were used: Automated exposure control, adjustment of the mA and k V according to patient size, and iterative reconstruction. Unless otherwise specified, incidental findings do not require dedicated imaging follow-up. COMPARISON: No prior exam. FINDINGS: LOWER CHEST: The visualized lung bases are clear. LIVER: Normal in size and contour. No focal lesion. Grossly unremarkable gallbladder. SPLEEN: Normal size. No focal lesion. PANCREAS: No mass, ductal dilation, or aaliyah-pancreatic fluid. ADRENALS: Normal; no mass. KIDNEYS: Normal size and contour. No hydronephrosis. GASTROINTESTINAL TRACT: No evidence of free air, significant intra-abdominal free fluid, bowel obstru ction or abscess. Majority of the colon as well as the appendix is within the left aspect of the abdominal cavity small bowel is in the right aspect of the abdominal cavity probably representing a c hronic malrotation of the gut. APPENDIX: Normal appendix. LYMPH NODES: No lymphadenopathy. MUSCULOSKELETAL: No acute or suspicious osseous abnormality. IMPRESSION: No acute abnormalities seen in the abdomen or pelvis.
--- NOTE | 2024-07-02 11:25 | EDPHYS ---
Physician Documentation [facility] Name: Wili Andrade Age: 33 yrs Sex: Male : 1990 Arrival Date: 07/02/2024 Time: 09:57 Bed 6 Private MD: ED Physician Paul Lowe HPI: 07/02 10:14 This 33 yrs old Male presents to ER via Ambulatory with complaints of rn Abdominal Pain - UPPER, Nausea. 10:14 The patient presents to the emergency department with abdominal pain, of the epigastric rn area. Onset: The symptoms/episode began/occurred last night. Possible causes: unknown. The patient has experienced similar episodes in the past. Patient reports history of gastric ulcers and acid reflux, last night had pizza and 6 beers, started to feel abdominal pain last night and worse this morning. Has not been taking antacids. No hematemesis or blood in stool. No fever or chills.. 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 - Infectious Disease History:: Denies. - Social history:: Patient uses alcohol, only on a social basis. Smoking status: Patient denies any tobacco usage or history of. - Family history:: not pertinent. - Hospitalizations: : No recent hospitalization is reported. ROS: 10:14 Constitutional: Negative for fever, chills, and weight loss, Cardiovascular: Negative rn for chest pain, palpitations, and edema, Respiratory: Negative for shortness of breath, cough, wheezing, and pleuritic chest pain, Abdomen/GI: Positive for epigastric abdominal pain and nausea Back: Negative for injury and pain, MS/Extremity: Negative for injury and deformity, Exam: 10:14 Constitutional: This is a well developed, well nourished patient who is awake, alert, rn and in no acute distress. Cardiovascular: Regular rate and rhythm. No pulse deficits. Respiratory: No increased work of breathing, no retractions or nasal flaring. Abdomen/GI: Soft, mild epigastric tenderness without rebound or guarding. No peritoneal signs. Negative Cat Vital Signs: 10:10 BP 152 / 108; Pulse 60; Resp 16; Temp 97.7(O); Pulse Ox 99% on R/A; Weight 77.11 kg; ss Height 5 ft. 10 in. ; Pain 4/10; 11:00 BP 136 / 93; Pulse 56; Resp 16; Temp 98.2; Pulse Ox 96% ; me1 10:10 Body Mass Index 24.39 (77.11 kg, 177.8 cm) ss 10:10 Pain Scale: Adult ss MDM: 10:04 Medical Screening Exam initiated rn 11:22 Differential diagnosis: Nonspecific abd pain, gastritis, cholecystitis, pancreatitis, rn viral gastroenteritis, gastroenteritis. Data reviewed: vital signs, nurses notes, lab test result(s), radiologic studies, CT scan, and as a result, I will discharge patient. Counseling: I had a detailed discussion with the patient and/or guardian regarding the historical points, exam findings, and any diagnostic results supporting the discharge/admit diagnosis, lab results, radiology results, the need for outpatient follow up, to return to the emergency department if symptoms worsen or persist or if there are any questions or concerns that arise at home. Response to treatment: the patient's symptoms have markedly improved after treatment, and as a result, I will discharge patient. Special discussion: Based on the patient's Hx, exam, and Dx evaluation, there is no indication for emergent surgery or inpatient Tx. It is understood by the patient/guardian that if the Sx's persist or worsen they need to return immediately for re-evaluation. I discussed with the patient/guardian in detail that at this point there is no indication for admission to the hospital. It is understood, however, that if the symptoms persist or worsen the patient needs to return immediately for re-evaluation. Based on the history and exam findings, there is no indication for further emergent testing or inpatient evaluation. I discussed with the patient/guardian the need to see the regulatory affairs internship for further evaluation of the symptoms. ED course: No acute findings on workup today. CT abdomen pelvis negative for acute findings. Most likely gastritis and GERD given history of gastric ulcers and not taking antacids in addition to eating pizza and 6 beers last night. Markedly improved. Will discharge home with Protonix prescription and recommend GI follow-up.. 07/02 10:10 Order name: CBC with Diff; Complete Time: 10:44 rn 07/02 10:10 Order name: CMP; Complete Time: 10:50 rn 07/02 10:10 Order name: Lipase; Complete Time: 10:50 rn 07/02 10:10 Order name: CT Abd/Pelvis - IV Contrast Only; Complete Time: 11:17 rn 07/02 10:10 Order name: IV Saline Lock; Complete Time: 10:20 rn 07/02 10:10 Order name: Labs collected and sent; Complete Time: 10:20 rn Administered Medications: 10:32 Drug: Famotidine IVP 20 mg IVP once; dilute with 10 mL 0.9% NaCl; give over 2 minutes ph Route: IVP; Site: right antecubital; 11:27 Follow up: Response: No adverse reaction ph 10:32 Drug: GI Cocktail without - (Maalox PO 30 ml, Lidocaine Mucous Membrane 2 % 15 ph ml) PO once Route: PO; 11:26 Follow up: Response: No adverse reaction ph 10:33 Drug: Ondansetron IVP 4 mg IVP once; over 2 minutes Route: IVP; Site: right antecubital;ph 11:27 Follow up: Response: No adverse reaction ph 10:33 Drug: morphine IVP or IV 4 mg IVP once over 4 mins Route: IVP; Infused Over: 4 mins; ph Site: right antecubital; 11:27 Follow up: Response: No adverse reaction; Pain is decreased ph 10:33 Drug: NS 0.9% IV 1000 ml IV at 1 bolus Per protocol; to be given as a bolus over 60 ph minutes Route: IV; Rate: 1 bolus; Site: right antecubital; 11:27 Follow up: Response: No adverse reaction; IV Status: Completed infusion; IV Intake: ph 1000ml Disposition Summary: 07/02/24 11:24 Discharge Ordered Notes: Location: Home rn Problem: new rn Symptoms: have improved rn Condition: Stable rn Diagnosis - Acute gastritis without bleeding rn Followup: rn - With: Private Physician - When: As needed - Reason: Recheck today's complaints, Re-evaluation by your physician Discharge Instructions: - Discharge Summary Sheet rn - Gastritis, Adult rn Forms: - Medication Reconciliation Form rn - Antibiotic manager of internal - Prescription Opioid Use rn - Patient Portal Instructions rn - Leadership Thank You Letter rn Prescriptions: - Protonix 40 mg Oral Tablet - take 1 tablet ORAL route once daily; 30 tablet; Refills: 0, Product Selection rn Permitted Signatures: Dispatcher [employer] Paul Vera MD MD rn Blanchard, Shelby, RN RN ss Jacey Rivera RN RN Maureen Iniguez RN RN me1
--- NOTE | 2024-07-02 11:25 | ER ---
Nurse's Notes [facility] Name: Wili Andrade Age: 33 yrs Sex: Male : 1990 Arrival Date: 07/02/2024 Time: 09:57 Bed 6 Private MD: Diagnosis: Acute gastritis without bleeding Presentation: 07/02 10:10 Chief complaint: Patient states: epigastric pain, nausea and acid taste that began ss yesterday, worse this morning. Coronavirus screen: Client denies travel out of the [place] in the last 14 days. Ebola Screen: Patient denies exposure to infectious person. Patient denies travel to an Ebola-affected area in the 21 days before illness onset. Initial Sepsis Screen: Does the patient meet any 2 criteria? No. Patient's initial sepsis screen is negative. Does the patient have a suspected source of infection? No. Patient's initial sepsis screen is negative. Risk Assessment: Do you want to hurt yourself or someone else? Patient reports no desire to harm self or others. Onset of symptoms was July 01, 2024. 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 - Infectious Disease History:: Denies. - Social history:: Patient uses alcohol, only on a social basis. Smoking status: Patient denies any tobacco usage or history of. - Family history:: not pertinent. - Hospitalizations: : No recent hospitalization is reported. Screenin:33 [facility] ED Fall Risk Assessment (Adult) History of falling in the last 3 months, ph including since admission No falls in past 3 months (0 pts) Confusion or Disorientation No (0 pts) Intoxicated or Sedated No (0 pts) Impaired Gait No (0 pts) Mobility Assist Device Used No (0 pt) Altered Elimination No (0 pt) Score/Fall Risk Level 0 - 2 = Low Risk Oriented to surroundings, Maintained a safe environment, Hourly rounding (assess needs \T\ fall precautionary measures) done. Abuse screen: Denies threats or abuse. Denies injuries from another. Nutritional screening: On. Tuberculosis screening: No symptoms or risk factors identified. Assessment: 10:10 General: Appears uncomfortable, well groomed, well developed, well nourished, Behavior me1 is calm, cooperative, appropriate for age, Reports epigastric pain, nausea and acid taste that began yesterday, worse this morning. Pain: Complains of pain in epigastric area Pain does not radiate. Pain currently is 4 out of 10 on a pain scale. Quality of pain is described as pressure, sharp, Pain began gradually, Is continuous. Pain: Is intermittent. Neuro: Level of Consciousness is awake, alert, obeys commands, Oriented to person, place, time, situation, Appropriate for age. Cardiovascular: Patient's skin is warm and dry. Respiratory: Airway is patent Respiratory effort is even, unlabored, Respiratory pattern is regular, symmetrical. GI: Abdomen is non-distended, Bowel sounds present X 4 quads. Abd is soft X 4 quads Reports upper abdominal pain, nausea. : No signs and/or symptoms were reported regarding the genitourinary system. EENT: No signs and/or symptoms were reported regarding the EENT system. Derm: Skin is intact, is healthy with good turgor, Skin is pink, warm \T\ dry. Musculoskeletal: No signs and/or symptoms reported regarding the musculoskeletal system. Vital Signs: 10:10 BP 152 / 108; Pulse 60; Resp 16; Temp 97.7(O); Pulse Ox 99% on R/A; Weight 77.11 kg; ss Height 5 ft. 10 in. ; Pain 4/10; 11:00 BP 136 / 93; Pulse 56; Resp 16; Temp 98.2; Pulse Ox 96% ; me1 10:10 Body Mass Index 24.39 (77.11 kg, 177.8 cm) 10:10 Pain Scale: Adult ss ED Course: 10:02 Patient arrived in ED. cj3 10:04 Paul Lowe MD is Attending Physician. rn 10:08 Maureen Iniguez, EDI is Primary Nurse. me1 10:10 Patient has correct armband on for positive identification. Bed in low position. Call me1 light in reach. Side rails up X2. Provided Education on: POC. Verbalized understanding.. Client placed on continuous cardiac and pulse oximetry monitoring. NIBP monitoring applied. Pulse ox on. NIBP on. 10:10 No provider procedures requiring assistance completed. me1 10:12 Triage completed. ss 10:12 Arm band placed on right wrist. ss 10:19 Initial lab(s) drawn, by me, sent to lab. Inserted saline lock: 20 gauge in right me1 antecubital area, using aseptic technique. 10:20 CBC with Diff Sent. me1 10:20 CMP Sent. ar1 10:20 Lipase Sent. me1 11:08 CT Abd/Pelvis - IV Contrast Only In Process Unspecified. EDMS 11:37 IV discontinued, intact, bleeding controlled, No redness/swelling at site. Pressure me1 dressing applied. Administered Medications: 10:32 Drug: Famotidine IVP 20 mg IVP once; dilute with 10 mL 0.9% NaCl; give over 2 minutes ph Route: IVP; Site: right antecubital; 11:27 Follow up: Response: No adverse reaction ph 10:32 Drug: GI Cocktail without - (Maalox PO 30 ml, Lidocaine Mucous Membrane 2 % 15 ph ml) PO once Route: PO; 11:26 Follow up: Response: No adverse reaction ph 10:33 Drug: Ondansetron IVP 4 mg IVP once; over 2 minutes Route: IVP; Site: right antecubital;ph 11:27 Follow up: Response: No adverse reaction ph 10:33 Drug: morphine IVP or IV 4 mg IVP once over 4 mins Route: IVP; Infused Over: 4 mins; ph Site: right antecubital; 11:27 Follow up: Response: No adverse reaction; Pain is decreased ph 10:33 Drug: NS 0.9% IV 1000 ml IV at 1 bolus Per protocol; to be given as a bolus over 60 ph minutes Route: IV; Rate: 1 bolus; Site: right antecubital; 11:27 Follow up: Response: No adverse reaction; IV Status: Completed infusion; IV Intake: ph 1000ml Medication: 10:33 VIS not applicable for this client. ph Intake: 11:27 IV: 1000ml; Total: 1000ml. ph Outcome: 11:24 Discharge ordered by . rn 11:37 Discharged to home ambulatory, ar1 11:37 Condition: stable 11:37 Discharge instructions given to patient, Instructed on discharge instructions, follow up and referral plans. medication usage, Demonstrated understanding of instructions, follow-up care, medications, Prescriptions given X 1, 11:37 Patient left the ED. me1 Signatures: Dispatcher [employer] EDPaul Collins MD MD rn Blanchard, Shelby, RN RN Jacey Rivera RN RN Maureen Iniguez RN RN me1 Yahaira Chaves 3 Corrections: (The following items were deleted from the chart) 10:37 10:10 Chief complaint: Patient states: epigastric pain, nausea and acid taste that me1 began yesterday, worse this morning 11:29 10:10 Chief complaint: Patient states: epigastric pain, nausea and acid taste that me1 began yesterday, worse this morning me1
[2024-07-02 11:54] VITALS: BP 136/93; TEMP 98.2; O2SAT 96
== END 2024-07-02 11:37 | disposition home or self-care (01) ==
LOC: ER 09:57
DX: K29.00 Acute gastritis without bleeding (principal)
CPT/HCPCS: 36415; 74177; 80053; 83690; 85025; 96361; 96374; 96375; 99284; J2405; J7030; Q9967